=== PATIENT | female | born 1950 | race Caucasian/White ===

== ENCOUNTER 2018-02-02 14:23 | Outpatient (CLI) | payer MEDICARE ==
--- NOTE | 2018-02-02 15:33 | RAD ---
CHEST TWO VIEWS: History: Cough. Comparison: None. FINDINGS: There are sternotomy wires. Heart is enlarged. There is atherosclerosis of the aorta. Coronary artery stent is noted. Pulmonary vessels and hilum are normal. There are reticular nodular opacities. Lungs are hyperinflated. No pneumothorax. IMPRESSION: 1. Nonspecific reticular nodular opacities. 2. Cardiomegaly. 3. Atherosclerosis. POS: [facility]
== END 2018-02-02 14:24 | disposition home or self-care (01) ==
LOC: RAD-FRANK 14:23
PROVIDERS: ATTEND Nurse Practitioner Family
DX: J40 Bronchitis, not specified as acute or chronic (principal); I51.7 Cardiomegaly; R91.8 Other nonspecific abnormal finding of lung field; I70.0 Atherosclerosis of aorta
CPT/HCPCS: 71046

== ENCOUNTER 2018-09-24 20:53 | Emergency (ER) | payer MEDICARE, MEDICAID ==
--- NOTE | 2018-09-24 21:51 | RAD ---
CHEST TWO VIEWS: 09/24/18 HISTORY: Cough. COMPARISON: 02/02/18. FINDINGS: The cardiac silhouette and upper limits of normal in size. Pulmonary vasculature is unremarkable. Med iastinum is midline with aortic calcification, coronary artery stent, and postoperative changes. Lung s are slightly hyperinflated. There is no lobar consolidation, pneumothorax, or pleural fluid. IMPRESSION: Atherosclerosis. Chronic type findings are stable. POS: [facility]
--- NOTE | 2018-09-24 21:53 | RAD ---
LUMBAR SPINE THREE VIEWS: 09/24/18 HISTORY: Low back pain. FINDINGS: There are five lumbar type vertebrae. Bilateral pedicle screws and vertical rods of the lumbosacral j unction. Other pedicles are intact. Vertebral body heights and alignment are maintained. Moderate ost eophytosis. Calcification within the arterial structures. IMPRESSION: Postoperative changes and mild degenerative changes of the lumbar spine. No acute osseous abnormaliti es are demonstrated. Atherosclerosis. POS: [facility]
[2018-09-24] MEDS ORDERED: HYDROcodone/Acetaminophen 10/325 mg Tablet ONE (21:58)
== END 2018-09-24 23:00 | disposition home or self-care (01) ==
LOC: ERS 20:53
DX: M54.5 Low back pain (principal); J20.9 Acute bronchitis, unspecified; I25.10 Atherosclerotic heart disease of native coronary artery without angina pectoris; F41.9 Anxiety disorder, unspecified; F32.9 Major depressive disorder, single episode, unspecified; F17.210 Nicotine dependence, cigarettes, uncomplicated; I25.2 Old myocardial infarction; Z79.82 Long term (current) use of aspirin; Z79.899 Other long term (current) drug therapy
CPT/HCPCS: 71046; 72100

== ENCOUNTER 2018-10-27 21:15 | Emergency (ER) | payer MEDICARE, MEDICAID ==
[~2018-10-27 21:15] MED LIST: ISOVUE-370 76%-LOCM 1 ML ONE
[2018-10-27 22:12] LABS: #Basophils 0.1 thou/uL (0.0-0.2); #Eosinphils 0.2 thou/uL (0.0-0.7); #Lymphocytes 1.7 thou/uL (1.20-3.40); #Monocytes 0.8 thou/uL (0.11-0.59); #Neutrophils 8.2 thou/uL (1.40-6.50); %Basophils 0.5 % (0.0-1.0); %Eosinophils 1.7 % (0.0-10.0); %Lymphocytes 15.6 % (21.0-51.0); %Monocytes 7.2 % (0.0-10.0); %Neutrophils 75.1 % (42.0-75.0); Hemoglobin 14.3 g/dL (12.0-16.0); Mean Corpuscular HGB CONC 33.8 g/dL (32.0-36.0); Mean Corpuscular Hemoglobin 30.2 pg (27.0-31.0); Mean Corpuscular Volume 89.5 fL (78.0-98.0); Mean Platelet Volume 8.9 fL (7.4-10.4); Platelet Count 199 thou/uL (130-400); RBC Distribution Width 13.7 % (11.5-14.5); Red Blood Cell (RBC) Count 4.74 mill/uL (4.20-5.40); White Blood Cell (WBC) Count 10.9 thou/uL (4.8-10.8)
[2018-10-27 22:15] LABS: Bilirubin Negative (Negative); Blood, Urine Negative (Negative); Clarity CLEAR (Clear); Glucose, Urine (Dipstick) Negative (Negative); Leukocyte Negative (Negative); Nitrite Negative (Negative); Protein, Urine (Dipstick) Negative (Neg-Trace); Specific Gravity, Urine 1.007 (1.002-1.036); Urobilinogen 0.2 mg/dL (0.2-1.0)
--- NOTE | 2018-10-27 22:16 | RAD ---
PORTABLE UPRIGHT FRONTAL CHEST RADIOGRAPH 10/27/18 COMPARISON: 02/29/16. HISTORY: Abdominal pain with shortness of breath. FINDINGS: Midline sternotomy wires and mediastinal clips are noted, stable. No pneumothorax or pleural fluid. N o focal consolidation or alveolar edema. Mild increased linear interstitial density with pulmonary hy perinflation noted, stable. IMPRESSION: Stable appearance of the chest - no acute findings. POS: [facility]
[2018-10-27 22:37] LABS: ALT (SGPT) 9 U/L (8-55); AST (SGOT) 13 U/L (5-34); Albumin 3.9 g/dL (3.4-4.8); Alkaline Phosphatase 100 U/L (40-150); Anion Gap 11 mmol/L (10-20); BUN (Urea Nitrogen) 6 mg/dL (9.8-20.1); Bilirubin, Total 0.6 mg/dL (0.2-1.2); Calc. Creatinine Clearance 0 mL/min (70-130); Calcium 9.9 mg/dL (7.8-10.44); Carbon Dioxide 29 mmol/L (23-31); Chloride 102 mmol/L (98-107); Estimated GFR-MDRD 69; Globulin 3.2 g/dL (2.4-3.5); Glucose 107 mg/dL (80-115); Lipase 53 U/L (8-78); Potassium 3.6 mmol/L (3.5-5.1); Protein, Total 7.1 g/dL (6.0-8.3); Sodium 138 mmol/L (136-145)
[2018-10-27] MEDS ORDERED: Dicyclomine 20 MG TAB ONE (22:38)
[2018-10-27] MEDS ORDERED: hydrALAZINE 20 MG/ML VIAL ONE (22:38)
[2018-10-27 22:41] LABS: CKMB 0.8 ng/mL (0-6.6); Troponin I Less than 0.010 ng/mL (< 0.028)
--- NOTE | 2018-10-27 23:16 | CT ---
CT OF ABDOMEN AND PELVIS: 10/27/18 COMPARISON: None. HISTORY: Right lower quadrant pain. TECHNIQUE: Axial CT imaging at 5 mm intervals from lung bases through pubic symphysis with IV contrast. Coronal reformatted imaging obtained. FINDINGS: The imaged lung bases are unremarkable. Incompletely imaged midline sternotomy wires are present. The cardiac silhouette appears enlarged. No free intraperitoneal air. Cholelithiasis noted. The liver, spleen, pancreas, adrenal glands, and kidneys appear unremarkable. The lack of oral contrast limits assessment of the bowel. The colon is decompressed and thus not well assessed. The appendix is not visualized. There is a line ar focus of hyperdensity at the cecal apex which may be on the basis of prior appendectomy. There is multifocal atherosclerotic calcification of the abdominal aorta and its branches. No lymphadenopathy is seen within the abdomen or the pelvis. The osseous structures demonstrate lower lumbar spine posterior fusion hardware at the lumbosacral junction. No worrisome lytic or blastic pham ne lesions seen. IMPRESSION: Chronic findings as described above. No evidence for free intraperitoneal air or bowel obstruction/pham wel inflammatory change. POS: [facility]
[2018-10-28] MEDS ORDERED: Ketorolac Tromethamine 30 MG/ML VIAL ONE (00:07)
== END 2018-10-28 00:50 | disposition home or self-care (01) ==
LOC: ERS 21:15
DX: G89.18 Other acute postprocedural pain (principal); R10.31 Right lower quadrant pain; I25.10 Atherosclerotic heart disease of native coronary artery without angina pectoris; I25.2 Old myocardial infarction; I10 Essential (primary) hypertension; J44.9 Chronic obstructive pulmonary disease, unspecified; F41.9 Anxiety disorder, unspecified; F32.9 Major depressive disorder, single episode, unspecified; F17.210 Nicotine dependence, cigarettes, uncomplicated; Z79.899 Other long term (current) drug therapy; Z79.82 Long term (current) use of aspirin; Z98.890 Other specified postprocedural states
CPT/HCPCS: 71045; 74177; 80053; 81003; 82553; 83690; 84484; 85025; 87086; 93005; 96374; 96375; J0360; J1885

== ENCOUNTER 2019-05-16 12:21 | Observation (INO) | payer MEDICARE, MEDICAID ==
[2019-05-16 12:41] LABS: #Basophils 0.1 thou/uL (0.0-0.2); #Eosinphils 0.1 thou/uL (0.0-0.7); #Monocytes 0.9 thou/uL (0.11-0.59); #Neutrophils 12.4 thou/uL (1.40-6.50); %Basophils 0.5 % (0.0-1.0); %Eosinophils 0.9 % (0.0-10.0); %Lymphocytes 12.8 % (21.0-51.0); %Monocytes 5.6 % (0.0-10.0); %Neutrophils 80.3 % (42.0-75.0); Mean Corpuscular HGB CONC 32.4 g/dL (32.0-36.0); Mean Corpuscular Hemoglobin 28.6 pg (27.0-31.0); Mean Corpuscular Volume 88.2 fL (78.0-98.0); Mean Platelet Volume 9.1 fL (7.4-10.4); Platelet Count 196 thou/uL (130-400); RBC Distribution Width 14.2 % (11.5-14.5); Red Blood Cell (RBC) Count 4.89 mill/uL (4.20-5.40); White Blood Cell (WBC) Count 15.5 thou/uL (4.8-10.8)
[2019-05-16] MEDS ORDERED: Aspirin 325 MG TAB ONE (12:50)
[2019-05-16] MEDS ORDERED: Nitroglycerin 0.4 MG TAB 1 EACH ONE (12:50)
[2019-05-16 13:05] LABS: ALT (SGPT) 11 U/L (8-55); AST (SGOT) 13 U/L (5-34); Albumin 4.1 g/dL (3.4-4.8); Alkaline Phosphatase 107 U/L (40-150); Anion Gap 15 mmol/L (10-20); BUN (Urea Nitrogen) 4 mg/dL (9.8-20.1); Bilirubin, Total 1.3 mg/dL (0.2-1.2); Calc. Creatinine Clearance 0 mL/min (70-130); Calcium 9.5 mg/dL (7.8-10.44); Carbon Dioxide 26 mmol/L (23-31); Chloride 101 mmol/L (98-107); Estimated GFR-MDRD 68; Globulin 3.1 g/dL (2.4-3.5); Glucose 106 mg/dL (80-115); Protein, Total 7.2 g/dL (6.0-8.3); Sodium 139 mmol/L (136-145)
[2019-05-16] MEDS ORDERED: Acetaminophen 500 MG TAB ONE (13:23)
[2019-05-16] MEDS ORDERED: Nitroglycerin 2% Ointment 1 INCH/1 GM Packet ONE (13:23)
--- NOTE | 2019-05-16 14:07 | RAD ---
CHEST ONE VIEW: 05/16/19 at 12:50 p.m. HISTORY: Chest pain. FINDINGS: Comparison made with exam of 10/27/18. Changes of median sternotomy again seen. The heart is enlarged. The aorta is tortuous. The lungs are expanded without focal areas of consolidation, pneumothoraces, fahad pulmonary edema or pleural effus ions. IMPRESSION: No acute process. POS: [facility]
[2019-05-16 15:20] VITALS: BMI 24.1
[2019-05-16 16:18] LABS: Troponin I Less than 0.010 ng/mL (< 0.028)
[2019-05-16] MEDS ORDERED: Nitroglycerin 0.4 MG TAB (25 Tab Bottle) PO PRN (18:03)
[2019-05-16] MEDS ORDERED: Temazepam 15 MG CAP PO PRN (18:03)
[2019-05-16] MEDS ORDERED: Acetaminophen 325 MG TAB PO PRN (18:03)
[2019-05-16] MEDS: Mometasone/Formoterol 120 PUFF INHALER INH SCH (18:47)
[2019-05-16 19:08] LABS: Troponin I Less than 0.010 ng/mL (< 0.028)
[2019-05-16] MEDS ORDERED: ETODOLAC 300 MG PO SCH (21:00)
[2019-05-16] MEDS ORDERED: Atorvastatin Calcium 20 MG TAB PO SCH (21:00)
[2019-05-16] MEDS ORDERED: Non-Formulary Item 1 EACH (Budesonide-Formoterol [Symbicort 160-4.5] 2 PUFF) INH SCH (21:00)
[2019-05-16] MEDS ORDERED: traZODone HCl 50 MG TAB PO SCH (21:00)
[2019-05-16] MEDS: Nitroglycerin 2% Ointment 1 INCH/1 GM Packet TOP SCH (21:20)
[2019-05-16] MEDS: Oxybutynin 5 MG TAB PO SCH (21:20)
--- NOTE | 2019-05-16 22:50 | HP ---
PRIMARY CARE PHYSICIAN: JADE Newell COUNTER MAKER: Juan Stockton MD CHIEF COMPLAINT: Left arm pain and numbness. HISTORY OF PRESENT ILLNESS: Ms. Patel is a very pleasant 69-year-old female, who has a history of coronary artery disease. She has had a previous WI back in 2016 and has had bypass surgery x2. She says that she was doing fine since 2016 when she had a stent placed to the right coronary artery when she started having pain in her left arm. She says that it happened shortly after she woke up. She says that she was not doing anything in particular with regard to anything strenuous. She says that the pain then lasted only about 5 or 10 minutes and then went away and then would come back in "different locations" such as in her back and as well as in her chest. She says that the pain was not that severe. It was more or less a 2/10, but it was associated with nausea and dry heaving and she felt hot and cold all over. She says it was very similar in characteristics when she had a previous WI and for this reason, she came to the emergency room for evaluation. She denies having any PND or orthopnea. When asked if she was short of breath, she says she is "always short of breath" because she is on the verge of "COPD." She does admit to having some leg swelling, but denies any palpitations. REVIEW OF SYSTEMS: CONSTITUTIONAL: There has been no fevers, chills. No night sweats. No weight loss. HEENT: She denies any headache. No dizziness. No visual changes. No sore throat, rhinorrhea, neck pain. No adenopathy. PULMONARY: No hemoptysis. No cough. No wheezing. CARDIOVASCULAR: As in history of present illness. GASTROINTESTINAL: No abdominal pain. No nausea, no vomiting. No change in bowels. GENITOURINARY: No urinary frequency, hematuria. No hesitancy. NEUROLOGIC: No focal weakness, numbness. No seizures. PSYCHIATRIC: She has had some stress lately. She says her daughter was recently admitted to the hospital for a suicide attempt and taking an overdose and this has been stressing her out lately. SKIN AND INTEGUMENT: No skin changes other than she says that she bruises easily and she attributes that to the "blood thinners." PAST MEDICAL HISTORY: Significant for coronary artery disease, as well as elevated cholesterol, COPD, and hypertension. PAST SURGICAL HISTORY: She has had a two-vessel bypass followed by a four-vessel bypass and then a stent placement in 2016. She has had eye surgery and appendectomy, back surgery and bilateral tubal ligation. ALLERGIES: SHE SAYS ARE TO STADOL, CHLORPHENIRAMINE, AND PHENYLEPHRINE. SOCIAL HISTORY: She smokes about a half a pack of cigarettes daily at least for 50 years. She says she is cutting back. She denies any alcohol use. She is and would like to be a full code. She has 2 children. FAMILY HISTORY: Significant for a maternal aunt who had cancer. CURRENT MEDICATIONS: Include; 1. Symbicort 160/4.5 two puffs twice a day. 2. Lipitor 80 mg at bedtime. 3. Fluoxetine 40 mg daily. 4. Oxybutynin 5 mg twice daily. 5. Aspirin 81 mg daily. 6. Trazodone 50 mg at bedtime. 7. Metoprolol succinate 25 mg daily. 8. Isosorbide mononitrate 30 mg extended release daily. 9. Nitrostat 0.4 mg sublingual daily. 10. Etodolac 300 mg daily. 11. Clopidogrel 75 mg daily. 12. Lisinopril 5 mg daily. 13. Pantoprazole 40 mg at bedtime. PHYSICAL EXAMINATION: GENERAL: She is alert and oriented. She appears to be in no acute distress. She is well developed and well nourished. VITAL SIGNS: Blood pressure is 188/87, heart rate 70, respiratory rate of 20, and temperature is 97.8. HEENT: Her pupils are equal, round, and reactive to light and accommodation. Extraocular muscles are intact. Sclerae are anicteric. Throat, there is no erythema, no exudates. NECK: There are no bruits. She did have maybe a slight increase in jugular venous distention. No adenopathy. LUNGS: Clear to auscultation. There is no wheezing, no rales, no rhonchi. CARDIOVASCULAR: She has a normal S1, S2. I did not appreciate an S3 or S4. No murmurs, clicks or rubs. ABDOMEN: Soft. It is nontender and nondistended. Positive for bowel sounds. There is no rebound, no guarding, no organomegaly. EXTREMITIES: There is no edema. There is no calf tenderness, no joint effusions. NEUROLOGIC: Cranial nerves 2 through 12 are intact. Her muscle strength is 5/5, upper and lower extremities. SKIN AND INTEGUMENT: There is some bruising on the left upper extremity, but no rashes. LAB RESULTS: White blood cell count is 15.5, hemoglobin 14, hematocrit is 43.1, and platelet count is 196. Sodium 139, potassium 3.0, chloride is 101, CO2 is 26, BUN of 4, creatinine 0.84, glucose is 106, bilirubin is 1.3. Troponin is less than 0.010. On her EKG, it is sinus rhythm, the rate is 86. She had some voltage criteria for LVH. There is a Q-wave in III and some nonspecific ST wave changes. On her chest x-ray, there is evidence for cardiomegaly, but no increased pulmonary vascular markings. ASSESSMENT: 1. This is a pleasant 69-year-old female, who presents to the emergency room with complaints of arm and chest pain which is reminiscent of the pain that she had when she had her ischemic heart disease and it is likely her anginal equivalent. She will be placed in observation. We will continue to trend her cardiac enzymes, place her on aspirin and nitroglycerin paste. Continue her usual home medications. Given that she has a reported recent cardiac evaluation in lieu of ordering a stress test, we will consult her automotive service technician, Dr. Stockton for further recommendations. 2. Dyslipidemia. We will continue atorvastatin. 3. Chronic obstructive pulmonary disease. We will continue Symbicort as well as eric Winston. Job ID: [id number]
[2019-05-17] MEDS: Nitroglycerin 2% Ointment 1 INCH/1 GM Packet TOP SCH ×2 (03:53→05:05)
[2019-05-17 05:49] LABS: #Basophils 0.1 thou/uL (0.0-0.2); #Eosinphils 0.2 thou/uL (0.0-0.7); #Lymphocytes 2.2 thou/uL (1.20-3.40); #Monocytes 0.7 thou/uL (0.11-0.59); #Neutrophils 4.4 thou/uL (1.40-6.50); %Eosinophils 3.1 % (0.0-10.0); %Lymphocytes 29.1 % (21.0-51.0); %Monocytes 8.6 % (0.0-10.0); %Neutrophils 58.1 % (42.0-75.0); Hemoglobin 12.2 g/dL (12.0-16.0); Mean Corpuscular HGB CONC 32.7 g/dL (32.0-36.0); Mean Corpuscular Volume 88.6 fL (78.0-98.0); Mean Platelet Volume 9.4 fL (7.4-10.4); Platelet Count 147 thou/uL (130-400); Red Blood Cell (RBC) Count 4.22 mill/uL (4.20-5.40); White Blood Cell (WBC) Count 7.7 thou/uL (4.8-10.8)
[2019-05-17 06:17] LABS: Anion Gap 10 mmol/L (10-20); BUN (Urea Nitrogen) 6 mg/dL (9.8-20.1); Calc. Creatinine Clearance 60 mL/min (70-130); Carbon Dioxide 29 mmol/L (23-31); Cardiac Risk 2.6 (Less than 4.5); Chloride 105 mmol/L (98-107); Cholesterol 85 mg/dl (< 200 Desired); Estimated GFR-MDRD 59; Glucose 82 mg/dL (80-115); HDL Cholesterol 33 mg/dL (>60 Neg Risk); LDL Cholesterol, Calculated 41 mg/dL; Potassium 3.1 mmol/L (3.5-5.1); Sodium 141 mmol/L (136-145); Triglycerides 56 mg/dL (Less than 150)
[2019-05-17] MEDS: Mometasone/Formoterol 120 PUFF INHALER INH SCH ×2 (08:03→18:47)
[2019-05-17] MEDS: Enoxaparin Sodium 30 MG/0.3 ML SYRINGE SC SCH ×2 (08:11→10:29)
[2019-05-17] MEDS: Oxybutynin 5 MG TAB PO SCH (08:25)
[2019-05-17] MEDS ORDERED: Clopidogrel Bisulfate 75 MG TAB PO SCH (09:00)
[2019-05-17] MEDS ORDERED: FLUoxetine HCl 20 MG CAP PO SCH (09:00)
[2019-05-17] MEDS ORDERED: Aspirin 81 mg Enteric Coated Tablet PO SCH (09:00)
[2019-05-17] MEDS ORDERED: Lisinopril 5 MG TAB PO SCH ×2 (09:00→13:30)
[2019-05-17] MEDS ORDERED: cloNIDine 0.1 MG TAB PO PRN (13:16)
[2019-05-17 16:33] VITALS: BP 155/71; TEMP 98.8
--- NOTE | 2019-05-17 18:13 | CON ---
DATE OF CONSULTATION: REASON FOR CONSULTATION: Chest pain. HISTORY OF PRESENT ILLNESS: Ms. Patel is a 69-year-old woman, who was seen and evaluated in the past. She has a previous history of acute myocardial infarction in addition to CAD status post bypass surgery. She recently states she had a stressful situation with her daughter. Her blood pressure increased. She had substernal chest pain. She was subsequently admitted. Her CKs and troponins have been negative. The patient did undergo successful stent placement to the saphenous vein graft to the right coronary artery, but there was significant thrombus present. She did have a recent stress study performed in August of 2018 that showed a normal LVEF with a scar to the inferior wall. PAST MEDICAL HISTORY: Reviewed and is as above. PHYSICAL EXAMINATION: GENERAL: Patient is a pleasant female, who is in no acute distress. The patient appears their stated age. VITAL SIGNS: Blood pressure 155/71, pulse 52, temperature 98.8. NEUROLOGIC: The patient is alert and oriented x3 with no focal neurologic deficits. HEENT: Sclerae without icterus. Mouth has moist mucous membranes with normal pallor. NECK: No JVD. Carotid upstroke brisk. No bruits bilaterally. LUNGS: Clear to auscultation with unlabored respirations. BACK: No scoliosis or kyphosis. CARDIAC: Regular rate and rhythm with normal S1 and S2. No S3 or S4 noted. No significant rubs, murmurs, thrills, or gallops noted throughout the precordium. PMI is not displaced. There is no parasternal heave. ABDOMEN: Soft, nontender, nondistended. No peritoneal signs present. No hepatosplenomegaly. No abnormal striae. EXTREMITIES: 2+ femoral and 2+ dorsalis pedis pulses. No cyanosis, clubbing, or edema. SKIN: No gross abnormalities. PERTINENT LABORATORY DATA: CK and troponin, negative. IMPRESSION: 1. Chest pressure. 2. Coronary artery disease. 3. Status post bypass surgery. RECOMMENDATIONS: Ms. Patel's symptoms are likely secondary to increased blood pressure. Blood pressure was in the 180s over 100s. It is now improved. She states she also feels this was precipitated by recent stressful situation. At this point, recommend aggressive blood pressure management. We would not proceed with coronary angiography given a recent stress study showing predominant scar to the inferior wall. Plan is to follow Ms. Patel in 1 to 2 weeks. Job ID: [id number]
--- NOTE | 2019-05-18 14:06 | DIS ---
DATE OF ADMISSION: 05/16/2019 DATE OF DISCHARGE: 05/17/2019 PRIMARY CARE PHYSICIAN: [facility] [place]. CONSULTANTS: Juan Stockton MD PROCEDURES: The patient had a chest x-ray, which showed no acute process. HOSPITAL COURSE: Ms. Patel is a 69-year-old female, who has a history of coronary artery disease with a previous AL back in 2016 and bypass surgery x2. She also has a stent placed in the right coronary artery. The patient reports that she is having some chest pain and arm pain, reminiscent of the pain that she had when she had her ischemic heart disease and thought likely to be anginal equivalent. She was placed on the observation unit. Troponins were trended. She was given aspirin and was given some nitroglycerin paste. We asked Dr. Stockton to consult. The patient reports that she has had a recent cardiac evaluation. Dr. Stockton thought that her symptoms were likely secondary to increased blood pressure. Initially, it was systolic 180s over 100s. She has since improved while in the hospital. He recommended blood pressure management, did not want to proceed with the cardiac cath due to her recent stress test, which showed predominant scar to the inferior wall and he went on to see her in the office in 1 to 2 weeks. Troponins x3 were undetectable. BNP was 401.8. The patient was feeling better. Vital signs improved and she was sent home. ALLERGIES: STADOL, NOVALISONISTINE. HOME MEDICATIONS: We continued: 1. ProAir inhaler 2 puffs as needed q.4. 2. Lipitor 80 mg p.o. at bedtime. 3. Symbicort 160/4.5 two puffs b.i.d. 4. Plavix 75 mg p.o. daily. 5. Etodolac 300 mg cap p.o. at bedtime. 6. Fluoxetine 40 mg p.o. daily. 7. Metoprolol 25 mg p.o. daily. 8. Ditropan 5 mg p.o. b.i.d. 9. Protonix 40 mg p.o. daily. 10. Trazodone 50 mg p.o. at bedtime. 11. Aspirin 81 mg p.o. daily. 12. Isosorbide 30 mg p.o. daily was added. 13. We also added lisinopril 10 mg p.o. daily and also some nitroglycerin 0.4 mg sublingual q.5 minutes as needed. DISPOSITION: Home. DISCHARGE CONDITION: Stable. FOLLOWUP INSTRUCTIONS: The patient should follow up with [facility] within the next week and should follow up with Dr. Stockton in the next 1 to 2 weeks. She should call and make appointments for both. Medications have been added to her regimen and instructed to take as prescribed. Job ID: [id number]
--- NOTE | 2019-05-20 11:05 | EKG ---
Test Reason : CP Blood Pressure : / mmHG Vent. Rate : 086 BPM Atrial Rate : 086 BPM P-R Int : 136 ms QRS Dur : 096 ms QT Int : 386 ms P-R-T Axes : 053 034 143 degrees QTc Int : 461 ms Sinus rhythm with Premature supraventricular complexes with occasional Premature ventricular complexe s Possible Left atrial enlargement Left ventricular hypertrophy Abnormal ECG No change from 10/27/2018 Confirmed by TRIXIE HOLLINS ([id number]), content editor RICKY TRIMBLE ([id number]) on 05/20/2019 11:04:41 AM Referred By: Confirmed By:TRIXIE HOLLINS
== END 2019-05-17 19:50 | disposition home or self-care (01) ==
LOC: ERS 12:21 → 2SW 13:54
PROVIDERS: ADMIT Internal Medicine; ATTEND Internal Medicine
DX: R07.9 Chest pain, unspecified (principal); R20.0 Anesthesia of skin; I25.2 Old myocardial infarction; Z79.899 Other long term (current) drug therapy; Z79.82 Long term (current) use of aspirin; Z95.2 Presence of prosthetic heart valve; Z95.5 Presence of coronary angioplasty implant and graft
CPT/HCPCS: 36415; 71045; 80048; 80053; 80061; 83880; 84484; 85025; 93005; 94760; J1650

== ENCOUNTER 2019-05-19 14:10 | Outpatient (CLI) | payer MEDICARE, MEDICAID ==
--- NOTE | 2019-05-19 14:42 | MMO ---
Bilateral MAMMO Bilat Screen [facility]. CLINICAL HISTORY: Patient is 69 years old and is seen for screening. The patient has no family history of breast cancer. The patient has no personal history of cancer. The patient has a history of left Cyst Aspiration more than 10 years ago - benign. VIEWS: The views performed were: bilateral craniocaudal with tomosynthesis; bilateral mediolateral oblique with tomosynthesis; and bilateral exaggerated craniocaudal. MAMMOGRAM FINDINGS: The breasts are heterogeneously dense, which could obscure a lesion on mammography. There are no suspicious masses, suspicious calcifications, or new areas of architectural distortion. IMPRESSION: THERE IS NO MAMMOGRAPHIC EVIDENCE OF MALIGNANCY. A ROUTINE FOLLOW-UP MAMMOGRAM IN 1 YEAR IS RECOMMENDED. THE RESULTS OF THIS EXAM WERE SENT TO THE PATIENT. ACR BI-RADS Category 1 - Negative MAMMOGRAPHY NOTE: 1. A negative mammogram report should not delay a biopsy if a dominant of clinically suspicious mass is present. 2. Approximately 10% to 15% of breast cancers are not detected by mammography. 3. Adenosis and dense breasts may obscure an underlying neoplasm.
== END 2019-05-19 14:11 | disposition home or self-care (01) ==
LOC: BICMAMMO 14:10
PROVIDERS: ATTEND Nurse Practitioner Family
DX: Z12.31 Encounter for screening mammogram for malignant neoplasm of breast (principal)
CPT/HCPCS: 77063; 77067

== ENCOUNTER 2019-06-19 14:06 | Outpatient (CLI) | payer MEDICARE, MEDICAID ==
--- NOTE | 2019-06-19 16:08 | BD ---
DEXA BONE MINERAL DENSITY STUDY: HISTORY: Osteoporosis screening. COMPARISON: None. FINDINGS: BMD (g/cm2) T-SCORE Z-SCORE RIGHT FEMORAL NECK 0.672 -1.6 0.0 TOTAL RIGHT HIP 0.841 -0.8 0.5 L1 0.815 -1.6 0.1 L2 0.925 -0.9 1.0 L3 1.100 0.1 2.1 L4 1.099 0.3 2.4 TOTAL 0.991 -0.5 1.4 WHO CLASSIFICATION: Osteopenia. TEN YEAR FRACTURE RISK: Major osteoporotic fracture 13% and hip fracture 3.1%. IMPRESSION: Osteopenia with elevated fracture risk. POS: [facility]
== END 2019-06-19 14:07 | disposition home or self-care (01) ==
LOC: BICMAMMO 14:06
PROVIDERS: ATTEND Nurse Practitioner Family
DX: Z13.820 Encounter for screening for osteoporosis (principal); M85.89 Other specified disorders of bone density and structure, multiple sites
CPT/HCPCS: 77080

== ENCOUNTER 2019-09-18 12:16 | Outpatient (CLI) | payer MEDICAID, MEDICARE ==
--- NOTE | 2019-09-18 12:59 | ULT ---
EXAM: Carotid ultrasound HISTORY: Stroke/TIA COMPARISON: None TECHNIQUE: Multiplanar grayscale and color Doppler images were obtained in a carotid ultrasound. Spec tral analysis of the Doppler waveforms were performed. FINDINGS: No small amount of plaque is visualized in both internal carotid arteries. No significant plaque is s een in either common carotid artery. The Doppler waveforms are normal in the visualized vessels. Peak systolic velocity in the right internal carotid artery 57 cm/s. Peak systolic velocity in the right common carotid artery 62 cm/s. The right ICA/CCA ratio is 0.9. Peak systolic velocity in the left internal carotid artery 83 cm/s. Peak systolic velocity in the left common carotid artery 75 cm/s. The left ICA/CCA ratio is 1.1. Both vertebral arteries demonstrate antegrade flow without focal stenosis IMPRESSION: No evidence of hemodynamically significant stenosis.
--- NOTE | 2019-09-18 13:10 | CT ---
CT head without contrast: Multiple axial tomograms obtained through the head without IV enhancement. INDICATIONS: Aphasia. Memory loss. COMPARISON: None FINDINGS: Ventricles have normal size and position. Moderate to severe chronic ischemic white matter change. No evidence of intracranial mass, hemorrhage, edema, or infarct. Visualized sinuses and mastoids appear clear. Bony calvarium appears unremarkable. IMPRESSION: Moderately severe chronic ischemic white matter change. No acute process.
== END 2019-09-18 12:17 | disposition home or self-care (01) ==
LOC: BICULT 12:16
DX: R47.01 Aphasia (principal); I67.82 Cerebral ischemia
CPT/HCPCS: 70450; 93880

== ENCOUNTER 2020-06-25 20:55 | Emergency (ER) | payer MEDICARE, OTHER ==
--- NOTE | 2020-06-25 22:12 | CT ---
Exam: Head CT without contrast HISTORY: Trauma. Patient fell last week. COMPARISON: none FINDINGS: Hemorrhage: No intraparenchymal hemorrhage or extra-axial hematoma. Brain parenchyma: Cortical abdul-white matter differentiation is preserved. No mass effect or midline shift. Basilar cisterns are patent.Stable confluent white matter hypodensities due to chronic small vessel change. Ventricular system: Ventricles and sulci are patent and symmetric. Calvarium: Intact. Sinuses and mastoid air cells: Adequate aeration. IMPRESSION: No acute intracranial process or intracranial post traumatic sequelae.
--- NOTE | 2020-06-25 22:16 | CT ---
Exam: CT cervical spine without contrast HISTORY: Trauma. Pain. COMPARISON: None FINDINGS: No craniocervical dissociation. Appropriate alignment of the lateral masses of C1 and C2. Intact odon toid process Appropriate alignment of the facets. Soft tissue neck structures: No mass, lymphadenopathy or hematoma. No prevertebral soft tissue swelli ng. Heterogeneous thyroid gland. Nonemergent thyroid ultrasound Upper mediastinum and lung apices: Questionable subtle groundglass nodule in the left upper lobe kvng uring 0.6 cm Central spinal canal: Varying degrees of central canal stenosis and neural foraminal narrowing on the basis of degenerative change. Prominent left paracentral discussed by complex at C5-C6. Vertebral bodies: Cervical spine vertebral body height is maintained. No fracture. IMPRESSION: 1. No fracture 2. Multilevel degenerative changes of the cervical spine as described above 3. Heterogeneous thyroid gland. Nonemergent thyroid ultrasound 4. Questionable groundglass nodule in the left upper lobe. Nonemergent chest CT Code lung nodule
[2020-06-25 22:47] LABS: #Basophils 0.1 thou/uL (0.0-0.2); #Eosinphils 0.1 thou/uL (0.0-0.7); #Lymphocytes 2.4 thou/uL (1.20-3.40); #Monocytes 0.9 thou/uL (0.11-0.59); #Neutrophils 5.5 thou/uL (1.40-6.50); %Basophils 0.6 % (0.0-1.0); %Eosinophils 1.5 % (0.0-10.0); %Lymphocytes 27.1 % (21.0-51.0); %Monocytes 9.6 % (0.0-10.0); %Neutrophils 61.3 % (42.0-75.0); Hemoglobin 13.2 g/dL (12.0-16.0); Mean Corpuscular HGB CONC 33.6 g/dL (32.0-36.0); Mean Corpuscular Hemoglobin 30.5 pg (27.0-31.0); Mean Corpuscular Volume 90.7 fL (78.0-98.0); Mean Platelet Volume 9.7 fL (7.4-10.4); Platelet Count 138 thou/uL (130-400); RBC Distribution Width 13.8 % (11.5-14.5); Red Blood Cell (RBC) Count 4.33 mill/uL (4.20-5.40)
[2020-06-25 23:09] LABS: ALT (SGPT) Less than 7 U/L (8-55); AST (SGOT) 10 U/L (5-34); Albumin 3.4 g/dL (3.4-4.8); Alkaline Phosphatase 79 U/L (40-110); Anion Gap 9 mmol/L (10-20); BUN (Urea Nitrogen) 8 mg/dL (9.8-20.1); Bilirubin, Total 0.5 mg/dL (0.2-1.2); Calc. Creatinine Clearance 0 mL/min (70-130); Calcium 8.8 mg/dL (7.8-10.44); Carbon Dioxide 33 mmol/L (23-31); Chloride 103 mmol/L (98-107); Estimated GFR-MDRD 51; Globulin 2.4 g/dL (2.4-3.5); Glucose 83 mg/dL (80-115); Potassium 3.2 mmol/L (3.5-5.1); Protein, Total 5.8 g/dL (6.0-8.3); Sodium 142 mmol/L (136-145)
== END 2020-06-25 23:23 | disposition home or self-care (01) ==
LOC: ERS 20:55
DX: R51 Headache (principal); M54.2 Cervicalgia; I25.10 Atherosclerotic heart disease of native coronary artery without angina pectoris; I25.2 Old myocardial infarction; I10 Essential (primary) hypertension; J44.9 Chronic obstructive pulmonary disease, unspecified; F41.9 Anxiety disorder, unspecified; F32.9 Major depressive disorder, single episode, unspecified; F17.210 Nicotine dependence, cigarettes, uncomplicated; Z79.899 Other long term (current) drug therapy; Z79.82 Long term (current) use of aspirin; W18.00XA Striking against unspecified object with subsequent fall, initial encounter
CPT/HCPCS: 36415; 70450; 72125; 80053; 85025; 85652; 86140

== ENCOUNTER 2020-09-19 18:12 | Inpatient (IN) | payer MEDICARE, OTHER ==
[2020-09-19 18:49] LABS: Bilirubin Negative (Negative); Blood, Urine Negative (Negative); Clarity Clear (Clear); Glucose, Urine (Dipstick) Normal (Negative); Ketone, Urine Negative (Negative); Leukocyte Negative Leu/uL (Negative); Nitrite Negative (Negative); Protein, Urine (Dipstick) Negative (Neg-Trace); Specific Gravity, Urine 1.004 (1.002-1.036); Urobilinogen Normal mg/dL (Less than 2)
[2020-09-19 18:54] LABS: #Basophils 0.1 thou/uL (0.0-0.2); #Eosinphils 0.1 thou/uL (0.0-0.7); #Lymphocytes 2.3 thou/uL (1.20-3.40); #Monocytes 0.7 thou/uL (0.11-0.59); #Neutrophils 5.8 thou/uL (1.40-6.50); %Basophils 0.7 % (0.0-1.0); %Lymphocytes 25.4 % (21.0-51.0); %Monocytes 8.3 % (0.0-10.0); %Neutrophils 64.7 % (42.0-75.0); Hemoglobin 13.9 g/dL (12.0-16.0); Mean Corpuscular Hemoglobin 30.7 pg (27.0-31.0); Mean Corpuscular Volume 92.9 fL (78.0-98.0); Mean Platelet Volume 9.3 fL (7.4-10.4); Platelet Count 163 thou/uL (130-400); RBC Distribution Width 13.9 % (11.5-14.5); Red Blood Cell (RBC) Count 4.54 mill/uL (4.20-5.40); White Blood Cell (WBC) Count 8.9 thou/uL (4.8-10.8)
--- NOTE | 2020-09-19 19:10 | RAD ---
Chest AP view INDICATION: History of chest pain COMPARISON: May 16, 2019 chest radiograph FINDINGS: Lungs: The lungs are clear Cardiac silhouette: Stable cardiomegaly and post-CABG change Pulmonary vasculature: Normal Pleural spaces: No pleural effusion or pneumothorax is demonstrated. Upper abdomen: No abnormality seen. Osseous structures: No acute osseous abnormality. Additional findings: Coronary endograft is stable along the right heart border. IMPRESSION: No acute cardiopulmonary abnormality.
[2020-09-19 19:15] LABS: ALT (SGPT) 10 U/L (8-55); AST (SGOT) 15 U/L (5-34); Albumin 4.1 g/dL (3.4-4.8); Alkaline Phosphatase 84 U/L (40-110); Anion Gap 12 mmol/L (10-20); BUN (Urea Nitrogen) 7 mg/dL (9.8-20.1); Bilirubin, Total 0.7 mg/dL (0.2-1.2); CK (CPK) 70 U/L (29-168); Calc. Creatinine Clearance 0 mL/min (70-130); Calcium 9.3 mg/dL (7.8-10.44); Carbon Dioxide 29 mmol/L (23-31); Chloride 105 mmol/L (98-107); Estimated GFR-MDRD 56; Globulin 2.6 g/dL (2.4-3.5); Glucose 117 mg/dL (80-115); Lipase 35 U/L (8-78); Potassium 4.4 mmol/L (3.5-5.1); Protein, Total 6.7 g/dL (6.0-8.3); Sodium 142 mmol/L (136-145)
[2020-09-19] MEDS ORDERED: Nitroglycerin 2% Ointment 1 INCH/1 GM Packet ONE (19:36)
[2020-09-19] MEDS ORDERED: Aspirin Chewable 81 MG TAB ONE (19:36)
[2020-09-19] MEDS ORDERED: methylPREDNISolone Sod Succ/PF 125 MG/2 ML VIAL ONE (19:36)
[2020-09-19] MEDS ORDERED: Acetaminophen 500 MG TAB ONE (19:36)
[2020-09-19] MEDS ORDERED: Albuterol Sulfate 2.5 mg/3 ml Neb ONE (20:20)
[2020-09-19 21:03] LABS: SARS-CoV-2 NAA Rapid Test Not Detected (NotDetected)
--- NOTE | 2020-09-19 22:19 | PDOC.HHP ---
Hospitalist HPI - History of Present Illness Chest pain History of Present Illness: PCP: Matthew The patient is a 70-year-old female with a past medical history significant for CAD (1 stent), CABG (2007, 2014), COPD, CHF, HTN, HLD, GERD that presents to the emergency department for the above complaint. The patient reports developing chest pain at approximately 12:30 in the afternoon, located centrally and radiating to her back, described as stabbing and sharp pain exacerbated and relieved by nothing. She reports associated shortness of breath worsened with exertion. She reports feeling nauseous and having the dry heaves. Denies diarrhea, melena or hematochezia. She reports feeling lightheaded. She denies heart palpitations and lower extremity swelling. She denies recent cough or wheezing. Denies any recent fever or illness. She denies loss of sense of smell. She has no urinary symptoms. ED Course: VITAL SIGNS Robyn Sep 19, 2020 18:14 ASCENCION Koenig Kelsey Pulse: 61, Resp: 20, Temp: 98.1 (Oral), O2 sat: 98 on (Room Air), Time: 09/19/2020 18:14. VITAL SIGNS Robyn Sep 19, 2020 18:29 ASCENCION Elliott Nicole BP: 219/79, Time: 09/19/2020 18:29. VITAL SIGNS Robyn Sep 19, 2020 19:44 ASCENCION Baldwin, Imani BP: 185/91, MAP: 122, Pulse: 59, Resp: 18, Temp: 98.1 (Oral), Pain: 2discomfort, O2 sat: 98 on (Room Air), Time: 09/19/2020 19:44. VITAL SIGNS Robyn Sep 19, 2020 20:27 Ernst, RESPPatric Pulse: 52, Resp: 18, O2 sat: 97, Time: 09/19/2020 20:27. VITAL SIGNS Robyn Sep 19, 2020 21:26 CONCHITA Perez William BP: 192/74, Pulse: 67, Resp: 18, Temp: 98.4 (Oral), Pain: 2, O2 sat: 97 on (Room Air), Time: 09/19/2020 21:26. Medication administration: albuterol sulfate inhalation 5 mg Nebulize Given 20:09/19/2020 DuoNeb 3 mL Nebulize Given 20:27 09/19/2020 aspirin oral 243 mg Oral Given 20:17 09/19/2020 methylPREDNISolone sodium succinate inje 125 mg IV Push Given 19:56 09/19/2020 Nitro-Bid transdermal 1 inch Topical Given 19:54 09/19/2020 Tylenol 1 g Oral Given 19:53 09/19/2020 Levaquin in 5 % dextrose 750 mg IV Piggy Back Given 19:53 09/19/2020 Hospitalist ROS - Review of Systems All other systems reviewed; all pertinent +/- noted in HPI/Subj - Medication Medications: Allergies: chlorpheniramine, Novahistine Expectorant, pseudoephedrine HCl, Stadol Hospitalist History - Past Medical History Source: patient, RN notes reviewed Cardiac: reports: CAD (X1 stent (2017)), CHF, HTN, [place] (X5), Hyperlipidemia Pulmonary: reports: COPD, Other (Spot on lungsunable to get follow-up CT chest due to finances.) Gastrointestinal: reports: GERD Psych: reports: Depression Renal/: reports: Other (Overactive bladder) Endocrine: reports: Other ("Spot on thyroid"unable to get follow-up CT due to finances.) - Past Surgical History Past Surgical History: reports: Appendectomy, CABG (X2 (2015) and x4 (2006) CAD x1 (2017)), Other (Right eye surgery) - Family History Family History: reports: cardiac disorder (Mother) - Social History Smoking Status: Current every day smoker (Half pack per day times greater than 50 years) Tobacco Type: cigarettes Alcohol: reports: None Drugs: reports: none Living Situation: With Family Occupation: Does not work Activity level: independent ambulation - Exam General Appearance: NAD, awake alert. negative: ill appearing General - other findings: Resting comfortably in bed, speaks in full sentences Eye: anicteric sclera ENT: normocephalic atraumatic Neck: supple, symmetric, no JVD Heart: RRR, no murmur, no gallops, no rubs, normal peripheral pulses Respiratory: no rales, normal chest expansion, no tachypnea, rhonchi, wheezes Gastrointestinal: soft, non-tender, non-distended, normal bowel sounds, no bruit, no guarding, no rigidity Extremities: no cyanosis, no edema Skin: no rashes Neurological: no weakness, no focal deficits Psychiatric: normal affect, A&O x 3 Hospitalist Results - Labs Result Diagrams: 09/19/20 18:44 09/19/20 18:44 Lab results: WBC 8.9 thou/uL (4.8-10.8) 09/19/20 18:44 Hgb 13.9 g/dL (12.0-16.0) 09/19/20 18:44 Hct 42.1 % (36.0-47.0) 09/19/20 18:44 MCV 92.9 fL (78.0-98.0) 09/19/20 18:44 Plt Count 163 thou/uL (130-400) 09/19/20 18:44 Neutrophils % 64.7 % (42.0-75.0) 09/19/20 18:44 Sodium 142 mmol/L (136-145) 09/19/20 18:44 Potassium 4.4 mmol/L (3.5-5.1) 09/19/20 18:44 Chloride 105 mmol/L (98-107) 09/19/20 18:44 Carbon Dioxide 29 mmol/L (23-31) 09/19/20 18:44 BUN 7 mg/dL (9.8-20.1) L 09/19/20 18:44 Creatinine 0.98 mg/dL (0.6-1.1) 09/19/20 18:44 Glucose 117 mg/dL (80-115) H 09/19/20 18:44 Calcium 9.3 mg/dL (7.8-10.44) 09/19/20 18:44 Total Bilirubin 0.7 mg/dL (0.2-1.2) 09/19/20 18:44 AST 15 U/L (5-34) 09/19/20 18:44 ALT 10 U/L (8-55) 09/19/20 18:44 Alkaline Phosphatase 84 U/L (40-110) 09/19/20 18:44 Creatine Kinase 70 U/L (29-168) 09/19/20 18:44 Troponin I 0.016 ng/mL (< 0.028) 09/19/20 18:44 Serum Total Protein 6.7 g/dL (6.0-8.3) 09/19/20 18:44 Albumin 4.1 g/dL (3.4-4.8) 09/19/20 18:44 Lipase 35 U/L (8-78) 09/19/20 18:44 Urine Ketones Negative mg/dL (Negative) 09/19/20 18:30 Urine Blood Negative (Negative) 09/19/20 18:30 Urine Nitrite Negative (Negative) 09/19/20 18:30 Ur Leukocyte Esterase Negative Nayla/uL (Negative) 09/19/20 18:30 - EKG Interpretation EK LEAD EKG INTERPRETATION with some T wave inversions in the V5 and V6.Heart rate 68 QTc 440 normal sinus rhythm. - Radiology Interpretation Chest x-ray Status: report reviewed by me Additional Comment: IMPRESSION: No acute cardiopulmonary abnormality Hospitalist H&P A/P - Problem (1) COPD exacerbation Code(s): J44.1 - CHRONIC OBSTRUCTIVE PULMONARY DISEASE W (ACUTE) EXACERBATION Status: Acute (2) Chest pain Code(s): R07.9 - CHEST PAIN, UNSPECIFIED Status: Acute (3) Hypertension Code(s): I10 - ESSENTIAL (PRIMARY) HYPERTENSION Status: Chronic (4) CAD (coronary artery disease) Code(s): I25.10 - ATHSCL HEART DISEASE OF [place] CORONARY ARTERY W/O ANG PCTRS Status: Chronic (5) CHF (congestive heart failure) Code(s): I50.9 - HEART FAILURE, UNSPECIFIED Status: Chronic (6) Hyperlipidemia Code(s): E78.5 - HYPERLIPIDEMIA, UNSPECIFIED Status: Chronic (7) Tobacco abuse Code(s): Z72.0 - TOBACCO USE Status: Chronic - Plan Plan: 70/F with PMH CAD, COPD, CHF presents for chest pain and shortness of breath. Admit to telemetry floor, observation status. Expected length of stay less than 2 midnights. Presented hypertensive, NL HR, RR, SPO2, afebrile. EKG NSR, T wave inversions V5V6, no ST elevation. CXR no acute cardiopulmonary process. Trop 0.012, DD 0.43, TSH 1.523 Covid negative, UA unremarkable, CBC unremarkable. #COPD exacerbation Reports feeling much better after medications given by ED physician. A: Speaking in complete sentences. Diffuse wheezing on exam. Continue Solu-Medrol, duo nebs, Levaquin Oxygen as needed. #Chest pain Likely related to problem #1. Heart score 6. Trend troponins, check BNP, mag level, FLP. Order echocardiogram. Continue aspirin, Nitro-Bid, statin. #Hypertension Presented BP 219/79 Upon assessment, still hypertensive with Nitro-Bid. Give clonidine 0.1 mg x 1 dose now. Nursing to reconcile home meds, she took home meds this morning. Continue to monitor BP. #CAD Continue aspirin and Plavix. #CHF Does not appear to be in fluid volume overload. Check BNP. Order echocardiogram. #Hyperlipidemia Continue home dose of statin. #Tobacco abuse Half pack per day greater than 50 years. Unwilling to quit. NRT. Counseled tobacco cessation. Lovenox for DVT prophylaxis. PPI for GI prophylaxis. Full code. Discussed case with Dr. Evie Ventura.
[2020-09-19] MEDS ORDERED: Nitroglycerin 0.4 MG TAB (25 Tab Bottle) SL PRN (22:37)
[2020-09-19] MEDS ORDERED: Albuterol 200 PUFF (6.7GM INHALER) INH PRN (22:38)
[2020-09-19 22:45] LABS: Troponin I Less than 0.010 ng/mL (< 0.028)
[2020-09-19] MEDS ORDERED: Ondansetron ODT 4 MG TAB PO PRN (22:45)
[2020-09-19] MEDS ORDERED: Calcium Carbonate 500 MG ChewTAB PO PRN (22:45)
[2020-09-19] MEDS ORDERED: Acetaminophen 650 MG Suppository PR PRN (22:45)
[2020-09-19] MEDS ORDERED: Guaifenesin DM 100-10/5 ML UDCUP PO PRN (22:45)
[2020-09-19] MEDS ORDERED: Ondansetron PF 4 MG/2 ML Vial IVP PRN (22:45)
[2020-09-19] MEDS ORDERED: Senokot S 8.6-50 MG TAB PO PRN (22:45)
[2020-09-19] MEDS ORDERED: Acetaminophen 325 MG TAB PO PRN (22:45)
[2020-09-19 23:22] VITALS: BMI 22.9
[2020-09-19] MEDS: Nicotine 14 MG PATCH TD SCH (23:41)
[2020-09-19] MEDS ORDERED: cloNIDine 0.1 MG TAB PO SCH (23:45)
[2020-09-20] MEDS ORDERED: Magnesium 2 GM/50 ML 2 GM in Premix Bag 1 BAG IVPB SCH (00:15)
[2020-09-20 01:18] LABS: Troponin I 0.018 ng/mL (< 0.028)
[2020-09-20] MEDS ORDERED: Nitroglycerin 2% Ointment 1 INCH/1 GM Packet TOP SCH (04:00)
[2020-09-20 05:10] LABS: Anion Gap 13 mmol/L (10-20); BUN (Urea Nitrogen) 7 mg/dL (9.8-20.1); Calc. Creatinine Clearance 62 mL/min (70-130); Calcium 8.9 mg/dL (7.8-10.44); Carbon Dioxide 24 mmol/L (23-31); Cardiac Risk 2.5 (Less than 4.5); Chloride 107 mmol/L (98-107); Cholesterol 108 mg/dl (< 200 Desired); Estimated GFR-MDRD 66; Glucose 211 mg/dL (80-115); HDL Cholesterol 44 mg/dL (>60 Neg Risk); LDL Cholesterol, Calculated 54 mg/dL; Sodium 140 mmol/L (136-145); Triglycerides 51 mg/dL (Less than 150)
[2020-09-20] MEDS ORDERED: methylPREDNISolone Sod Succ 40 MG VIAL IVP SCH (06:00)
[2020-09-20] MEDS: Mometasone 200 MCG/Formoterol 5 MCG 120 PUFF INHALER INH SCH ×2 (07:01→18:40)
[2020-09-20 07:19] LABS: Hemoglobin 13.9 g/dL (12.0-16.0); Mean Corpuscular HGB CONC 33.7 g/dL (32.0-36.0); Mean Corpuscular Hemoglobin 31.1 pg (27.0-31.0); Mean Corpuscular Volume 92.3 fL (78.0-98.0); Platelet Count 132 thou/uL (130-400); Red Blood Cell (RBC) Count 4.47 mill/uL (4.20-5.40); White Blood Cell (WBC) Count 8.2 thou/uL (4.8-10.8)
[2020-09-20 07:24] LABS: Band 1 % (5-11); Eosinophils 1 % (0-10); Lymphocytes 4 % (21-51); MDiff Complete? YES; Monocytes 2 % (0-10); Neutrophil 92 % (42-75); RBC Morphology Normal
[2020-09-20] MEDS ORDERED: Enoxaparin Sodium 40 MG/0.4 ML SYRINGE SC SCH (09:00)
[2020-09-20] MEDS: Lisinopril 10 MG TAB PO SCH (09:24)
[2020-09-20] MEDS: Clopidogrel Bisulfate 75 MG TAB PO SCH (09:24)
[2020-09-20] MEDS: DULoxetine 30 MG CAP PO SCH ×2 (09:24→21:02)
[2020-09-20] MEDS: Aspirin 81 mg Enteric Coated Tablet PO SCH (09:24)
[2020-09-20] MEDS: Oxybutynin 5 MG TAB PO SCH ×2 (09:25→21:02)
[2020-09-20] MEDS ORDERED: cloNIDine 0.1 MG TAB PO PRN (10:12)
[2020-09-20] MEDS: methylPREDNISolone Sod Succ 40 MG VIAL IVP SCH ×2 (15:55→21:01)
[2020-09-20] MEDS ORDERED: Atorvastatin Calcium 40 MG TAB PO SCH (21:00)
[2020-09-20] MEDS ORDERED: traZODone HCl 50 MG TAB PO SCH (21:00)
[2020-09-20] MEDS: Nicotine 14 MG PATCH TD SCH ×2 (21:02→21:04)
[2020-09-21 04:57] LABS: Anion Gap 12 mmol/L (10-20); BUN (Urea Nitrogen) 10 mg/dL (9.8-20.1); Calc. Creatinine Clearance 59 mL/min (70-130); Carbon Dioxide 23 mmol/L (23-31); Chloride 108 mmol/L (98-107); Estimated GFR-MDRD 62; Glucose 171 mg/dL (80-115); Potassium 4.1 mmol/L (3.5-5.1); Sodium 139 mmol/L (136-145)
[2020-09-21 05:10] LABS: Band 13 % (5-11); Hemoglobin 12.6 g/dL (12.0-16.0); Lymphocytes 3 % (21-51); MDiff Complete? YES; Mean Corpuscular HGB CONC 33.2 g/dL (32.0-36.0); Mean Corpuscular Hemoglobin 31.3 pg (27.0-31.0); Mean Corpuscular Volume 94.3 fL (78.0-98.0); Mean Platelet Volume 9.5 fL (7.4-10.4); Monocytes 2 % (0-10); Neutrophil 82 % (42-75); Platelet Count 126 thou/uL (130-400); RBC Distribution Width 14.1 % (11.5-14.5); Red Blood Cell (RBC) Count 4.03 mill/uL (4.20-5.40); White Blood Cell (WBC) Count 20.4 thou/uL (4.8-10.8)
[2020-09-21] MEDS: methylPREDNISolone Sod Succ 40 MG VIAL IVP SCH (06:46)
[2020-09-21] MEDS: Mometasone 200 MCG/Formoterol 5 MCG 120 PUFF INHALER INH SCH (07:14)
[2020-09-21 08:41] VITALS: BP 135/63; TEMP 98.5
[2020-09-21] MEDS: Aspirin 81 mg Enteric Coated Tablet PO SCH (08:41)
[2020-09-21] MEDS: Clopidogrel Bisulfate 75 MG TAB PO SCH (08:41)
[2020-09-21] MEDS: DULoxetine 30 MG CAP PO SCH (08:41)
[2020-09-21] MEDS: Oxybutynin 5 MG TAB PO SCH (08:42)
[2020-09-21] MEDS: Lisinopril 10 MG TAB PO SCH (08:42)
--- NOTE | 2020-09-21 14:39 | DIS ---
DATE OF ADMISSION: 09/21/2020 DATE OF DISCHARGE: 09/21/2020 DISCHARGE DISPOSITION: Home. FOLLOWUP: Follow up with primary care physician, Richelle Castro in 1 week. DISCHARGE MEDICATIONS: 1. Doxycycline 100 mg b.i.d. for next 5 days. 2. Prednisone taper. 3. Albuterol inhaler as needed. 4. All other home medications were left unchanged. Patient was seen and examined on the day of discharge. Denies any new complaints. No chest pain, shortness of breath, palpitations reported. BRIEF HOSPITAL COURSE: The patient is a 70-year-old female with coronary artery disease, COPD, with ongoing smoking, presented to the emergency room with chest discomfort along with shortness of breath. The chest discomfort was substernal, radiating to her back. It was sharp pain without any aggravating or relieving factor. The shortness of breath was mainly worse on onva-[id number]-[id number] exertion. Please refer to the history and physical for further details. The patient was admitted to the telemetry unit with a diagnosis of COPD exacerbation with chest discomfort. She was placed on IV steroids along with nebulizer treatment and Levaquin with good improvement in her symptoms. The antibiotics will be switched to oral doxycycline. She has been afebrile. She will complete prednisone as outpatient. The patient had a negative D-dimer. Her troponins remained negative. She underwent an echocardiogram that showed ejection fraction 55% to 60% with diastolic dysfunction, moderate mitral regurgitation and moderate tricuspid regurgitation. She will benefit from outpatient stress test once the COPD exacerbation resolves. Lifestyle modification including tobacco cessation was emphasized. FINAL DIAGNOSES: 1. Chronic obstructive pulmonary disease exacerbation. 2. Chest discomfort, acute coronary syndrome ruled out. 3. Hypertension. 4. Ongoing tobacco abuse. 5. Coronary artery disease. 6. Chronic diastolic heart failure. 7. Hyperlipidemia. 8. Moderate mitral regurgitation. 9. Moderate tricuspid regurgitation. The patient understands the above plan of care. Job ID: [id number]
[2020-09-21] MEDS ORDERED: predniSONE 20 MG TAB PO SCH (17:00)
== END 2020-09-21 11:45 | disposition home or self-care (01) | DRG 191 ==
LOC: ERS 18:12 → 2NO 21:41 → OBSVTOIN 09-21 08:06
PROVIDERS: ADMIT Internal Medicine; ATTEND Internal Medicine
DX: J44.1 Chronic obstructive pulmonary disease with (acute) exacerbation (principal); I50.32 Chronic diastolic (congestive) heart failure; I11.0 Hypertensive heart disease with heart failure; E78.5 Hyperlipidemia, unspecified; I25.10 Atherosclerotic heart disease of native coronary artery without angina pectoris; F17.210 Nicotine dependence, cigarettes, uncomplicated; I08.1 Rheumatic disorders of both mitral and tricuspid valves; Z20.828 Contact with and (suspected) exposure to other viral communicable diseases; K21.9 Gastro-esophageal reflux disease without esophagitis; F32.9 Major depressive disorder, single episode, unspecified; Z95.5 Presence of coronary angioplasty implant and graft; I25.2 Old myocardial infarction; Z90.49 Acquired absence of other specified parts of digestive tract; Z95.1 Presence of aortocoronary bypass graft
CPT/HCPCS: 36415; 71045; 80048; 80053; 80061; 81003; 82550; 83690; 83735; 83880; 84443; 84484; 85025; 85379; 93005; 93306; 94640; 94664; 94760; 96366; 96375; 96376; G0378; J1956; J2920; J2930; J3475; J7611; J7620; U0002

== ENCOUNTER 2021-05-29 23:42 | Emergency (ER) | payer MEDICARE ==
[2021-05-30] MEDS ORDERED: Morphine 4 MG/ML VIAL ONE (00:13)
[2021-05-30] MEDS ORDERED: Ondansetron PF 4 MG/2 ML Vial ONE (00:13)
[2021-05-30 00:28] LABS: #Basophils 0.1 thou/uL (0.0-0.2); #Eosinphils 0.2 thou/uL (0.0-0.7); #Lymphocytes 2.1 thou/uL (1.20-3.40); #Monocytes 0.9 thou/uL (0.11-0.59); #Neutrophils 6.5 thou/uL (1.40-6.50); %Basophils 0.8 % (0.0-1.0); %Eosinophils 1.9 % (0.0-10.0); %Lymphocytes 21.6 % (21.0-51.0); %Monocytes 8.9 % (0.0-10.0); %Neutrophils 66.8 % (42.0-75.0); Hemoglobin 12.7 g/dL (12.0-16.0); Mean Corpuscular Hemoglobin 30.3 pg (27.0-31.0); Mean Corpuscular Volume 91.9 fL (78.0-98.0); Mean Platelet Volume 9.4 fL (7.4-10.4); Platelet Count 150 thou/uL (130-400); RBC Distribution Width 14.1 % (11.5-14.5); Red Blood Cell (RBC) Count 4.18 mill/uL (4.20-5.40); White Blood Cell (WBC) Count 9.8 thou/uL (4.8-10.8)
[2021-05-30 00:47] LABS: ALT (SGPT) Less than 7 U/L (8-55); AST (SGOT) 11 U/L (5-34); Albumin 3.3 g/dL (3.4-4.8); Alkaline Phosphatase 88 U/L (40-110); Anion Gap 14 mmol/L (10-20); BUN (Urea Nitrogen) 6 mg/dL (9.8-20.1); Bilirubin, Total 0.5 mg/dL (0.2-1.2); Calc. Creatinine Clearance 0 mL/min (70-130); Calcium 8.8 mg/dL (7.8-10.44); Carbon Dioxide 26 mmol/L (23-31); Chloride 102 mmol/L (98-107); Globulin 2.5 g/dL (2.4-3.5); Glucose 112 mg/dL (80-115); Lipase 20 U/L (8-78); Potassium 3.3 mmol/L (3.5-5.1); Protein, Total 5.8 g/dL (5.8-8.1); Sodium 139 mmol/L (136-145)
[2021-05-30] MEDS ORDERED: Fentanyl 100 MCG/2 ML VIAL ONE (01:10)
[2021-05-30 01:22] LABS: Bilirubin Negative (Negative); Blood, Urine Negative (Negative); Clarity Clear (Clear); Glucose, Urine (Dipstick) Normal (Negative); Ketone, Urine Negative (Negative); Leukocyte Negative Leu/uL (Negative); Nitrite Negative (Negative); Protein, Urine (Dipstick) 20 mg/dL (Neg-Trace); Specific Gravity, Urine 1.031 (1.002-1.036)
== END 2021-05-30 02:18 | disposition home or self-care (01) ==
LOC: ERS 23:42
DX: R10.12 Left upper quadrant pain (principal); I25.10 Atherosclerotic heart disease of native coronary artery without angina pectoris; I25.2 Old myocardial infarction; I10 Essential (primary) hypertension; J44.9 Chronic obstructive pulmonary disease, unspecified; F17.210 Nicotine dependence, cigarettes, uncomplicated
CPT/HCPCS: 36415; 74176; 80053; 81003; 83690; 85025; 93005; 96374; 96375; J2270; J2405; J3010

== ENCOUNTER 2021-10-01 17:32 | Emergency (ER) | payer MEDICARE ==
[2021-10-02 12:04] LABS: SARS-CoV-2 PCR by NAA Not Detected (NotDetected)
== END 2021-10-01 19:12 | disposition home or self-care (01) ==
LOC: ERS 17:32
DX: J44.1 Chronic obstructive pulmonary disease with (acute) exacerbation (principal); Z20.822 Contact with and (suspected) exposure to COVID-19; I25.10 Atherosclerotic heart disease of native coronary artery without angina pectoris; I25.2 Old myocardial infarction; I10 Essential (primary) hypertension; F17.210 Nicotine dependence, cigarettes, uncomplicated; Z79.82 Long term (current) use of aspirin; Z79.899 Other long term (current) drug therapy
CPT/HCPCS: 71045; 99283; U0003; U0005

== ENCOUNTER 2021-12-01 15:00 | Emergency (ER) | payer OTHER, MEDICARE ==
[2021-12-02 15:08] LABS: SARS-CoV-2 PCR by NAA Not Detected (NotDetected)
== END 2021-12-01 17:09 | disposition home or self-care (01) ==
LOC: ERS 15:00
DX: U07.1 COVID-19 (principal); I10 Essential (primary) hypertension
CPT/HCPCS: 99283; U0003; U0005

== ENCOUNTER 2022-03-27 05:50 | Observation (INO) | payer MEDICARE, OTHER ==
[2022-03-27] MEDS ORDERED: Aspirin Chewable 81 MG TAB ONE (06:04)
[2022-03-27 06:37] LABS: #Eosinphils 0.1 thou/uL (0.0-0.7); #Lymphocytes 1.3 thou/uL (1.20-3.40); #Monocytes 0.7 thou/uL (0.11-0.59); #Neutrophils 6.3 thou/uL (1.40-6.50); %Basophils 0.5 % (0.0-1.0); %Eosinophils 0.8 % (0.0-10.0); %Lymphocytes 15.4 % (21.0-51.0); %Neutrophils 75.4 % (42.0-75.0); Hemoglobin 13.4 g/dL (12.0-16.0); Mean Corpuscular HGB CONC 33.7 g/dL (32.0-36.0); Mean Corpuscular Hemoglobin 31.8 pg (27.0-31.0); Mean Corpuscular Volume 94.5 fL (78.0-98.0); Mean Platelet Volume 9.4 fL (7.4-10.4); Platelet Count 124 thou/uL (130-400); RBC Distribution Width 13.2 % (11.5-14.5); Red Blood Cell (RBC) Count 4.22 mill/uL (4.20-5.40); White Blood Cell (WBC) Count 8.3 thou/uL (4.8-10.8)
[2022-03-27 06:55] LABS: ALT (SGPT) Less than 7 U/L (8-55); AST (SGOT) 10 U/L (5-34); Albumin 3.7 g/dL (3.4-4.8); Alkaline Phosphatase 86 U/L (40-110); Anion Gap 13 mmol/L (10-20); BUN (Urea Nitrogen) 4 mg/dL (9.8-20.1); Calc. Creatinine Clearance 0 mL/min (70-130); Calcium 9.1 mg/dL (7.8-10.44); Carbon Dioxide 27 mmol/L (23-31); Chloride 103 mmol/L (98-107); Globulin 2.5 g/dL (2.4-3.5); Glucose 120 mg/dL (80-115); Protein, Total 6.2 g/dL (5.8-8.1); Sodium 140 mmol/L (136-145)
[2022-03-27 07:02] LABS: Potassium 2.6 mmol/L (3.5-5.1)
[2022-03-27 07:28] LABS: Magnesium 1.9 mg/dL (1.6-2.6)
[2022-03-27] MEDS ORDERED: Lisinopril 10 MG TAB ONE (07:29)
[2022-03-27] MEDS ORDERED: Potassium Chloride 20 MEQ TAB ONE (07:29)
[2022-03-27] MEDS ORDERED: Potassium Chloride 20 MEQ/100 ML PREMIX BAG ONE (07:29)
[2022-03-27] MEDS ORDERED: Acetaminophen 325 MG TAB PO PRN (09:17)
[2022-03-27] MEDS ORDERED: Ondansetron ODT 4 MG TAB PO PRN (09:17)
[2022-03-27] MEDS ORDERED: Ondansetron PF 4 MG/2 ML Vial IVP PRN (09:17)
[2022-03-27] MEDS ORDERED: Nitroglycerin 0.4 MG TAB (25 Tab Bottle) SL PRN ×2 (09:25→10:44)
[2022-03-27] MEDS ORDERED: hydrALAZINE 20 MG/ML VIAL SLOW IVP PRN (09:54)
[2022-03-27 09:56] VITALS: BMI 21.2
[2022-03-27] MEDS ORDERED: Metoprolol Tartrate 25 MG TAB PO SCH ×2 (10:00→21:00)
[2022-03-27 10:12] LABS: Troponin I 0.016 ng/mL (< 0.028)
[2022-03-27] MEDS ORDERED: Non-Formulary Item 1 EACH (Albuterol Sulfate [Proair Hfa] 8.5 GM Hfa.Aer.Ad) INH PRN (10:44)
[2022-03-27] MEDS ORDERED: Albuterol 200 PUFF (6.7GM INHALER) INH PRN (10:56)
[2022-03-27] MEDS: Nitroglycerin 2% Ointment 1 INCH/1 GM Packet TOP SCH ×2 (11:29→18:06)
[2022-03-27 13:06] LABS: Troponin I 0.015 ng/mL (< 0.028)
[2022-03-27 15:55] LABS: SARS-CoV-2 PCR by NAA Not Detected (NotDetected)
[2022-03-27] MEDS: Mometasone 200 MCG/Formoterol 5 MCG 120 PUFF INHALER INH SCH (19:43)
[2022-03-27 19:45] LABS: Anion Gap 10 mmol/L (10-20); BUN (Urea Nitrogen) 7 mg/dL (9.8-20.1); Calc. Creatinine Clearance 52 mL/min (70-130); Calcium 8.9 mg/dL (7.8-10.44); Carbon Dioxide 29 mmol/L (23-31); Chloride 103 mmol/L (98-107); Glucose 129 mg/dL (80-115); Potassium 3.8 mmol/L (3.5-5.1); Sodium 138 mmol/L (136-145)
[2022-03-27] MEDS: DULoxetine 30 MG CAP PO SCH (19:52)
[2022-03-27] MEDS: Oxybutynin 5 MG TAB PO SCH (19:52)
[2022-03-27] MEDS ORDERED: traZODone HCl 50 MG TAB PO SCH (21:00)
[2022-03-27] MEDS ORDERED: Atorvastatin Calcium 20 MG TAB PO SCH (21:00)
[2022-03-27] MEDS ORDERED: Non-Formulary Item 1 EACH (Budesonide-Formoterol [Symbicort 160-4.5] 160 MG/4.5 MG Aer) INH SCH (21:00)
[2022-03-27] MEDS ORDERED: Atorvastatin Calcium 40 MG TAB PO SCH (21:00)
[2022-03-28] MEDS: Nitroglycerin 2% Ointment 1 INCH/1 GM Packet TOP SCH ×2 (01:22→11:25)
[2022-03-28 04:48] LABS: #Basophils 0.1 thou/uL (0.0-0.2); #Eosinphils 0.2 thou/uL (0.0-0.7); #Lymphocytes 2.3 thou/uL (1.20-3.40); #Monocytes 0.7 thou/uL (0.11-0.59); #Neutrophils 3.9 thou/uL (1.40-6.50); %Basophils 0.7 % (0.0-1.0); %Eosinophils 2.7 % (0.0-10.0); %Lymphocytes 32.3 % (21.0-51.0); %Monocytes 9.8 % (0.0-10.0); %Neutrophils 54.5 % (42.0-75.0); Hemoglobin 12.4 g/dL (12.0-16.0); Mean Corpuscular HGB CONC 33.5 g/dL (32.0-36.0); Mean Corpuscular Hemoglobin 32.2 pg (27.0-31.0); Mean Corpuscular Volume 96.1 fL (78.0-98.0); Mean Platelet Volume 9.2 fL (7.4-10.4); Platelet Count 105 thou/uL (130-400); RBC Distribution Width 13.4 % (11.5-14.5); Red Blood Cell (RBC) Count 3.85 mill/uL (4.20-5.40); White Blood Cell (WBC) Count 7.2 thou/uL (4.8-10.8)
[2022-03-28 05:02] LABS: Anion Gap 12 mmol/L (10-20); BUN (Urea Nitrogen) 8 mg/dL (9.8-20.1); Calc. Creatinine Clearance 62 mL/min (70-130); Calcium 8.7 mg/dL (7.8-10.44); Carbon Dioxide 28 mmol/L (23-31); Chloride 104 mmol/L (98-107); Glucose 93 mg/dL (80-115); Potassium 3.3 mmol/L (3.5-5.1); Sodium 141 mmol/L (136-145)
[2022-03-28] MEDS: Mometasone 200 MCG/Formoterol 5 MCG 120 PUFF INHALER INH SCH (06:42)
[2022-03-28] MEDS: Oxybutynin 5 MG TAB PO SCH (07:55)
[2022-03-28] MEDS: DULoxetine 30 MG CAP PO SCH (07:55)
[2022-03-28] MEDS ORDERED: Clopidogrel Bisulfate 75 MG TAB PO SCH (09:00)
[2022-03-28] MEDS ORDERED: Aspirin 81 mg Enteric Coated Tablet PO SCH (09:00)
[2022-03-28] MEDS ORDERED: Lisinopril 10 MG TAB PO SCH (09:00)
[2022-03-28] MEDS ORDERED: Lisinopril 5 MG TAB PO SCH (09:00)
[2022-03-28] MEDS ORDERED: Potassium Chloride 20 MEQ TAB PO SCH (12:00)
[2022-03-28 12:34] VITALS: BP 177/78; TEMP 97.6
[2022-03-28] MEDS ORDERED: Regadenoson 0.4 MG/5 ML SYRINGE ONE (13:54)
[2022-03-28] MEDS ORDERED: Amlodipine 5 MG TAB PO SCH (21:00)
== END 2022-03-28 15:35 | disposition home or self-care (01) ==
LOC: ERS 05:50 → 2SW 07:39
PROVIDERS: ADMIT Internal Medicine; ATTEND Internal Medicine
DX: R07.89 Other chest pain (principal); I11.9 Hypertensive heart disease without heart failure; I25.10 Atherosclerotic heart disease of native coronary artery without angina pectoris; F17.210 Nicotine dependence, cigarettes, uncomplicated; J44.9 Chronic obstructive pulmonary disease, unspecified; E78.5 Hyperlipidemia, unspecified; E87.6 Hypokalemia; K21.9 Gastro-esophageal reflux disease without esophagitis; Z79.02 Long term (current) use of antithrombotics/antiplatelets; Z79.82 Long term (current) use of aspirin; Z79.899 Other long term (current) drug therapy; Z88.8 Allergy status to other drugs, medicaments and biological substances; Z95.1 Presence of aortocoronary bypass graft; Z95.5 Presence of coronary angioplasty implant and graft; Z98.1 Arthrodesis status; Z20.822 Contact with and (suspected) exposure to COVID-19
CPT/HCPCS: 71045; 78452; 80048 ×2; 80053; 83735; 84484 ×2; 85025 ×2; 93005; 93017; 94640 ×2; 94664; 94760; 96365; 96366; 99285; A9500; U0003; U0005; 36415; G0378; J2785; J3480

== ENCOUNTER 2024-01-17 17:36 | Inpatient (IN) | payer MEDICARE, OTHER ==
[~2024-01-17 17:36] MED LIST changes: -ISOVUE-370 76%-LOCM 1 ML ONE; +Iopamidol-370 76% 500 ML MDV (1 ML CHARGE) ONE
[2024-01-17 18:47] LABS: #Basophils 0.1 thou/uL (0.0-0.2); #Neutrophils 16.1 thou/uL (1.40-6.50); %Basophils 0.3 % (0.0-1.0); %Eosinophils 0.2 % (0.0-10.0); %Lymphocytes 5.5 % (21.0-51.0); %Monocytes 5.4 % (0.0-10.0); %Neutrophils 88.2 % (42.0-75.0); Hematocrit 46.1 % (36.0-47.0); Hemoglobin 15.7 g/dL (12.0-16.0); Mean Corpuscular HGB CONC 34.1 g/dL (32.0-36.0); Mean Corpuscular Hemoglobin 29.3 pg (27.0-31.0); Mean Corpuscular Volume 86.2 fl (78.0-98.0); Mean Platelet Volume 10.3 fL (7.4-10.4); Platelet Count 170 10x3/uL (130-400); RBC Distribution Width 13.8 % (11.5-14.5); Red Blood Cell (RBC) Count 5.35 mill/uL (4.20-5.40); White Blood Cell (WBC) Count 18.3 10x3/uL (4.8-10.8)
[2024-01-17 19:16] LABS: ALT (SGPT) 10 U/L (8-55); AST (SGOT) 13 U/L (5-34); Albumin 3.8 g/dL (3.4-4.8); Alkaline Phosphatase 90 U/L (40-110); Anion Gap 12 mmol/L (10-20); BUN (Urea Nitrogen) 11 mg/dL (9.8-20.1); Bilirubin, Total 0.8 mg/dL (0.2-1.2); Calc. Creatinine Clearance 0 mL/min (70-130); Calcium 9.5 mg/dL (7.8-10.44); Carbon Dioxide 32 mmol/L (23-31); Chloride 95 mmol/L (98-107); Estimated GFR 56; Globulin 3.1 g/dL (2.4-3.5); Glucose 123 mg/dL (83-110); Lipase 23 U/L (8-78); Protein, Total 6.9 g/dL (5.8-8.1); Sodium 136 mmol/L (136-145)
[2024-01-17 19:17] LABS: Troponin I 0.011 ng/mL (< 0.028)
[2024-01-17] MEDS ORDERED: Potassium Chloride 20 MEQ TAB ONE (21:00)
[2024-01-17] MEDS ORDERED: Aspirin Chewable 81 MG TAB ONE (21:00)
[2024-01-17] MEDS ORDERED: Potassium Chloride 20 MEQ (100 mL) BAG ONE (21:00)
[2024-01-17 21:37] LABS: Magnesium 2.1 mg/dL (1.6-2.6)
[2024-01-17] MEDS ORDERED: Ondansetron PF 4 MG/2 ML Vial IVP PRN (21:41)
[2024-01-17 23:11] LABS: Bacteria/HPF 1+ HPF (None Seen); Bilirubin Negative (Negative); Blood, Urine Negative (Negative); CAUTI Indications for Culture Dysuria,urgency,freq; Clarity Clear (Clear); Glucose, Urine (Dipstick) Normal (Negative); Ketone, Urine Negative (Negative); Leukocyte Negative Leu/uL (Negative); Nitrite Negative (Negative); Protein, Urine (Dipstick) Negative (Neg-Trace); RBC/HPF 0-3 HPF (0-3); Specific Gravity, Urine 1.005 (1.002-1.036); Squamous Epithelial 0-3 HPF (0-3); Urobilinogen Normal mg/dL (Less than 2); WBC/HPF 0-3 HPF (0-3)
[2024-01-17 23:12] LABS: Urine Culture Reflex No No
[2024-01-18 01:35] LABS: Troponin I Less than 0.010 ng/mL (< 0.028)
[2024-01-18 04:00] VITALS: BMI 22.4
[2024-01-18 04:27] LABS: #Basophils 0.1 thou/uL (0.0-0.2); #Eosinphils 0.3 thou/uL (0.0-0.7); #Neutrophils 8.1 thou/uL (1.40-6.50); %Basophils 0.5 % (0.0-1.0); %Eosinophils 2.7 % (0.0-10.0); %Lymphocytes 22.9 % (21.0-51.0); %Monocytes 7.8 % (0.0-10.0); %Neutrophils 65.8 % (42.0-75.0); Hematocrit 39.1 % (36.0-47.0); Hemoglobin 13.3 g/dL (12.0-16.0); Mean Corpuscular Hemoglobin 29.4 pg (27.0-31.0); Mean Corpuscular Volume 86.5 fl (78.0-98.0); Mean Platelet Volume 10.3 fL (7.4-10.4); Platelet Count 151 10x3/uL (130-400); RBC Distribution Width 14.1 % (11.5-14.5); Red Blood Cell (RBC) Count 4.52 mill/uL (4.20-5.40); White Blood Cell (WBC) Count 12.3 10x3/uL (4.8-10.8)
[2024-01-18 04:50] LABS: Anion Gap 9 mmol/L (10-20); BUN (Urea Nitrogen) 10 mg/dL (9.8-20.1); Calc. Creatinine Clearance 56 mL/min (70-130); Calcium 8.9 mg/dL (7.8-10.44); Carbon Dioxide 28 mmol/L (23-31); Chloride 105 mmol/L (98-107); Estimated GFR 70; Glucose 86 mg/dL (83-110); Magnesium 2.1 mg/dL (1.6-2.6); Potassium 3.5 mmol/L (3.5-5.1); Sodium 138 mmol/L (136-145)
[2024-01-18 04:55] LABS: Troponin I 0.014 ng/mL (< 0.028)
[2024-01-18] MEDS ORDERED: Furosemide 40 MG TAB ONE (07:23)
[2024-01-18] MEDS: Furosemide 40 MG TAB PO SCH (07:27)
[2024-01-18] MEDS ORDERED: Senokot S 8.6-50 MG TAB ONE (08:59)
[2024-01-18] MEDS ORDERED: Metoprolol Tartrate 25 MG TAB ONE (08:59)
[2024-01-18] MEDS ORDERED: Clopidogrel Bisulfate 75 MG TAB ONE (08:59)
[2024-01-18] MEDS ORDERED: Polyethylene Glycol 3350 17 GM Packet ONE (08:59)
[2024-01-18] MEDS ORDERED: Potassium Chloride 20 MEQ TAB ONE (08:59)
[2024-01-18] MEDS ORDERED: Aspirin 81 mg Enteric Coated Tablet ONE (08:59)
[2024-01-18] MEDS: Potassium Chloride 20 MEQ TAB PO SCH (09:05)
[2024-01-18] MEDS: Aspirin 81 mg Enteric Coated Tablet PO SCH (09:05)
[2024-01-18] MEDS: Clopidogrel Bisulfate 75 MG TAB PO SCH (09:06)
[2024-01-18] MEDS: Senokot S 8.6-50 MG TAB PO SCH (09:09)
[2024-01-18] MEDS: Polyethylene Glycol 3350 17 GM Packet PO SCH (09:10)
[2024-01-18] MEDS: Isosorbide Mononitrate 30 MG ER.TAB PO SCH (09:38)
[2024-01-18] MEDS: Oxybutynin 5 MG TAB PO SCH (09:39)
[2024-01-18] MEDS ORDERED: Ibuprofen 200 MG TAB ONE (12:36)
[2024-01-18] MEDS: Ibuprofen 200 MG TAB PO SCH (12:40)
[2024-01-18] MEDS: Atorvastatin Calcium 40 MG TAB PO SCH (22:38)
[2024-01-19] MEDS: Acetaminophen 325 MG TAB PO PRN (08:20)
[2024-01-19] MEDS ORDERED: Non-Formulary Item 1 EACH (Budesonide-Formoterol [Symbicort 160-4.5] 160 MG/4.5 MG Aer) INH SCH (09:32)
[2024-01-19] MEDS ORDERED: Senokot S 8.6-50 MG TAB PO PRN (09:57)
[2024-01-19] MEDS ORDERED: Polyethylene Glycol 3350 17 GM Packet PO PRN (09:57)
[2024-01-19] MEDS: DULoxetine 30 MG CAP PO SCH (10:29)
[2024-01-19 10:37] LABS: #Basophils 0.1 thou/uL (0.0-0.2); #Eosinphils 0.4 thou/uL (0.0-0.7); #Monocytes 0.6 thou/uL (0.11-0.59); #Neutrophils 4.4 thou/uL (1.40-6.50); %Basophils 0.7 % (0.0-1.0); %Lymphocytes 27.5 % (21.0-51.0); %Monocytes 7.8 % (0.0-10.0); %Neutrophils 58.6 % (42.0-75.0); Mean Corpuscular HGB CONC 33.3 g/dL (32.0-36.0); Mean Corpuscular Hemoglobin 29.3 pg (27.0-31.0); Mean Platelet Volume 10.6 fL (7.4-10.4); Platelet Count 140 10x3/uL (130-400); RBC Distribution Width 14.2 % (11.5-14.5); Red Blood Cell (RBC) Count 4.43 mill/uL (4.20-5.40); White Blood Cell (WBC) Count 7.4 10x3/uL (4.8-10.8)
[2024-01-19 10:52] LABS: Anion Gap 11 mmol/L (10-20); BUN (Urea Nitrogen) 11 mg/dL (9.8-20.1); Calc. Creatinine Clearance 46 mL/min (70-130); Calcium 8.8 mg/dL (7.8-10.44); Carbon Dioxide 25 mmol/L (23-31); Chloride 106 mmol/L (98-107); Estimated GFR 56; Glucose 91 mg/dL (83-110); Magnesium 1.7 mg/dL (1.6-2.6); Potassium 3.9 mmol/L (3.5-5.1); Sodium 138 mmol/L (136-145)
[2024-01-19] MEDS: Albuterol 2.5 MG (3 mL) NEB NEB SCH ×2 (13:42→18:38)
[2024-01-19] MEDS: Mometasone 200 MCG/Formoterol 5 MCG 120 PUFF INHALER INH SCH (18:46)
[2024-01-19] MEDS: traZODone HCl 50 MG TAB PO SCH (21:07)
[2024-01-19] MEDS: Sacubitril 24MG/Valsartan 26 MG TAB PO SCH (21:07)
[2024-01-20 08:47] VITALS: BP 148/65; TEMP 98.1
== END 2024-01-20 11:30 | disposition home or self-care (01) | DRG 293 ==
LOC: ERS 17:36 → ERHOLD 21:41 → 2SW 01-18 14:47 → OBSVTOIN 01-19 13:26
PROVIDERS: ADMIT Internal Medicine; ATTEND Family Medicine
DX: I11.0 Hypertensive heart disease with heart failure (principal); E78.5 Hyperlipidemia, unspecified; I25.10 Atherosclerotic heart disease of native coronary artery without angina pectoris; J44.9 Chronic obstructive pulmonary disease, unspecified; F41.9 Anxiety disorder, unspecified; F32.A Depression, unspecified; F17.210 Nicotine dependence, cigarettes, uncomplicated; I50.42 Chronic combined systolic (congestive) and diastolic (congestive) heart failure; K59.00 Constipation, unspecified; D72.829 Elevated white blood cell count, unspecified; E87.6 Hypokalemia; K80.20 Calculus of gallbladder without cholecystitis without obstruction; N32.81 Overactive bladder; I42.9 Cardiomyopathy, unspecified; I25.5 Ischemic cardiomyopathy; Z79.899 Other long term (current) drug therapy; Z88.8 Allergy status to other drugs, medicaments and biological substances; Z79.82 Long term (current) use of aspirin; Z95.5 Presence of coronary angioplasty implant and graft; Z90.49 Acquired absence of other specified parts of digestive tract; Z95.1 Presence of aortocoronary bypass graft; Z98.890 Other specified postprocedural states; Z82.49 Family history of ischemic heart disease and other diseases of the circulatory system
CPT/HCPCS: 36415; 71046; 74177; 80048; 80053; 81001; 83690; 83735; 84484; 85025; 93005; 93306; 94640; 94664; G0378; J3480; J7611; Q9967

== ENCOUNTER 2024-02-23 11:03 | Inpatient (IN) | payer MEDICARE ==
[2024-02-23] MEDS ORDERED: dilTIAZem 125 MG/25 ML SDV ONE (11:33)
[2024-02-23 11:49] LABS: #Basophils 0.06 10x3/uL (0.0-0.2); %Basophils 0.7 % (0.0-1.0); %Eosinophils 1.9 % (0.0-10.0); %Lymphocytes 20.9 % (21.0-51.0); %Monocytes 6.5 % (0.0-10.0); %Neutrophils 69.7 % (42.0-75.0); Hematocrit 39.6 % (36.0-47.0); Hemoglobin 13.5 g/dL (12.0-16.0); Mean Corpuscular HGB CONC 34.1 g/dL (32.0-36.0); Mean Corpuscular Hemoglobin 29.7 pg (27.0-31.0); Mean Platelet Volume 11.3 fL (7.4-10.4); Platelet Count 168 10x3/uL (130-400); RBC Distribution Width 17.5 % (11.5-14.5); Red Blood Cell (RBC) Count 4.55 mill/uL (4.20-5.40)
[2024-02-23 12:00] LABS: Prothrombin Time 13.3 sec (12.0-14.7)
[2024-02-23 12:02] LABS: PTT 28.6 sec (22.9-36.1)
[2024-02-23 12:04] LABS: D-Dimer Test 1.4 mcg/mL (0.27-0.43)
[2024-02-23 12:08] LABS: Troponin I 0.016 ng/mL (< 0.028)
[2024-02-23 12:25] LABS: Albumin 3.8 g/dL (3.4-4.8)
[2024-02-23 12:27] LABS: Chloride 105 mmol/L (98-107); Potassium 4.2 mmol/L (3.5-5.1); Sodium 141 mmol/L (136-145)
[2024-02-23 12:28] LABS: Globulin 2.4 g/dL (2.4-3.5); Glucose 160 mg/dL (83-110); Protein, Total 6.2 g/dL (5.8-8.1)
[2024-02-23 12:29] LABS: Anion Gap 17 mmol/L (10-20); Carbon Dioxide 23 mmol/L (23-31)
[2024-02-23 12:30] LABS: Bilirubin, Total 1.1 mg/dL (0.2-1.2)
[2024-02-23 12:31] LABS: Alkaline Phosphatase 86 U/L (40-110); Calc. Creatinine Clearance 0 mL/min (70-130); Estimated GFR 49
[2024-02-23 12:32] LABS: BUN (Urea Nitrogen) 9 mg/dL (9.8-20.1)
[2024-02-23 12:33] LABS: AST (SGOT) 18 U/L (5-34); Magnesium 1.8 mg/dL (1.6-2.6)
[2024-02-23 12:34] LABS: ALT (SGPT) 19 U/L (8-55); Lipase 14 U/L (8-78)
[2024-02-23] MEDS ORDERED: Sodium Chloride 0.9% 100 ML ONE (13:56)
[2024-02-23] MEDS ORDERED: cefTRIAXone (ROCEPHIN) 1 GM VIAL ONE (13:56)
[2024-02-23] MEDS ORDERED: Azithromycin 500 MG VIAL ONE (14:33)
[2024-02-23 16:11] VITALS: BMI 25.6
[2024-02-23] MEDS: Mometasone 200 MCG/Formoterol 5 MCG 120 PUFF INHALER INH SCH (18:52)
[2024-02-23] MEDS: Atorvastatin Calcium 40 MG TAB PO SCH (20:59)
[2024-02-23] MEDS: Sacubitril 24MG/Valsartan 26 MG TAB PO SCH (20:59)
[2024-02-23] MEDS: Famotidine 20 MG TAB PO SCH (20:59)
[2024-02-23] MEDS: Metoprolol Tartrate 5 MG (5 mL) VIAL IVP SCH (23:46)
[2024-02-23 23:55] LABS: #Basophils 0.07 10x3/uL (0.0-0.2); %Basophils 0.8 % (0.0-1.0); %Eosinophils 2.9 % (0.0-10.0); %Lymphocytes 30.8 % (21.0-51.0); %Monocytes 8.2 % (0.0-10.0); %Neutrophils 57.1 % (42.0-75.0); Hematocrit 38.2 % (36.0-47.0); Hemoglobin 12.9 g/dL (12.0-16.0); Mean Corpuscular HGB CONC 33.8 g/dL (32.0-36.0); Mean Corpuscular Hemoglobin 29.6 pg (27.0-31.0); Mean Corpuscular Volume 87.6 fL (78.0-98.0); Mean Platelet Volume 11.6 fL (7.4-10.4); Platelet Count 152 10x3/uL (130-400); RBC Distribution Width 17.7 % (11.5-14.5); Red Blood Cell (RBC) Count 4.36 mill/uL (4.20-5.40)
[2024-02-24] MEDS: Acetaminophen 325 MG TAB PO PRN (00:14)
[2024-02-24] MEDS: Metoprolol Tartrate 5 MG (5 mL) VIAL IVP SCH ×2 (00:15→00:45)
[2024-02-24 00:22] LABS: Anion Gap 12 mmol/L (10-20); BUN (Urea Nitrogen) 8 mg/dL (9.8-20.1); Calc. Creatinine Clearance 61 mL/min (70-130); Calcium 8.8 mg/dL (7.8-10.44); Carbon Dioxide 21 mmol/L (23-31); Chloride 108 mmol/L (98-107); Estimated GFR 66; Glucose 98 mg/dL (83-110); Magnesium 1.8 mg/dL (1.6-2.6); Potassium 3.9 mmol/L (3.5-5.1); Sodium 137 mmol/L (136-145)
[2024-02-24] MEDS: Magnesium 2 GM/50 ML(in water) 2 GM in Premix 1 BAG IVPB SCH ×2 (00:46→13:58)
[2024-02-24] MEDS ORDERED: dilTIAZem 25 MG/5 ML VIAL SLOW IVP SCH ×2 (01:00→01:15)
[2024-02-24] MEDS: Furosemide 20 MG (2 mL) VIAL SLOW IVP SCH ×2 (02:02→05:51)
[2024-02-24] MEDS: dilTIAZem 25 MG/5 ML VIAL SLOW IVP SCH (09:26)
[2024-02-24] MEDS: Digoxin 0.5 MG/2 ML AMP SLOW IVP SCH (09:26)
[2024-02-24] MEDS: Enoxaparin 40 MG (0.4 mL) SYRINGE SC SCH (09:27)
[2024-02-24] MEDS: Clopidogrel Bisulfate 75 MG TAB PO SCH (09:28)
[2024-02-24] MEDS: DULoxetine 30 MG CAP PO SCH (09:28)
[2024-02-24] MEDS: Aspirin 81 mg Enteric Coated Tablet PO SCH (09:28)
[2024-02-24] MEDS: Isosorbide Mononitrate 30 MG ER.TAB PO SCH (09:28)
[2024-02-24] MEDS: Oxybutynin 5 MG TAB PO SCH (09:28)
[2024-02-24] MEDS: dilTIAZem 125 MG in Sodium Chloride 0.9% 100 ML IVPB SCH (09:30)
[2024-02-24] MEDS ORDERED: Electrolyte Replacement Protocol 1 EACH FS SCH (11:45)
[2024-02-24 12:03] LABS: Magnesium 1.9 mg/dL (1.6-2.6)
[2024-02-24 13:19] LABS: Influenza A by NAA Not Detected (NotDetected); Influenza B by NAA Not Detected (NotDetected); RSV by NAA Not Detected (NotDetected); SARS-CoV-2 NAA Rapid Test Not Detected (NotDetected)
[2024-02-24] MEDS: Furosemide 40 MG (4 mL) VIAL SLOW IVP SCH (13:58)
[2024-02-24] MEDS ORDERED: cefTRIAXone\\ROCEPHIN 1 GM in Sodium Chloride 0.9% 100 ML IVPB SCH (14:00)
[2024-02-24] MEDS: Azithromycin 500 MG in Sodium Chloride 0.9% 250 ML 250 ML IVPB SCH (15:14)
[2024-02-24] MEDS: traZODone HCl 50 MG TAB PO SCH (20:53)
[2024-02-24] MEDS: Apixaban 5 MG TAB PO SCH (20:54)
[2024-02-25 04:04] LABS: Anion Gap 12 mmol/L (10-20); BUN (Urea Nitrogen) 8 mg/dL (9.8-20.1); Calc. Creatinine Clearance 58 mL/min (70-130); Calcium 8.9 mg/dL (7.8-10.44); Carbon Dioxide 27 mmol/L (23-31); Chloride 107 mmol/L (98-107); Estimated GFR 63; Glucose 102 mg/dL (83-110); Potassium 3.2 mmol/L (3.5-5.1); Sodium 143 mmol/L (136-145)
[2024-02-25] MEDS: Potassium Chloride 20 MEQ TAB PO SCH (08:59)
[2024-02-25 11:32] VITALS: BP 123/79; TEMP 97.6
[2024-02-25] MEDS ORDERED: Azithromycin 250 MG TAB PO SCH (15:00)
[2024-02-26] MEDS ORDERED: FLU VACC QS2023(65UP)/MF59C/PF 60 MCG/0.5 ML SYRINGE IM ONE (09:00)
== END 2024-02-25 12:22 | disposition home or self-care (01) | DRG 291 ==
LOC: ERS 11:03 → ERHOLD 13:54 → 2NO 15:42
PROVIDERS: ADMIT Family Medicine; ATTEND Family Medicine
DX: I11.0 Hypertensive heart disease with heart failure (principal); I50.33 Acute on chronic diastolic (congestive) heart failure; I48.19 Other persistent atrial fibrillation; J44.1 Chronic obstructive pulmonary disease with (acute) exacerbation; I25.10 Atherosclerotic heart disease of native coronary artery without angina pectoris; E78.5 Hyperlipidemia, unspecified; Z88.8 Allergy status to other drugs, medicaments and biological substances; Z79.899 Other long term (current) drug therapy; Z79.82 Long term (current) use of aspirin; F41.9 Anxiety disorder, unspecified; F32.A Depression, unspecified; Z95.1 Presence of aortocoronary bypass graft; Z90.49 Acquired absence of other specified parts of digestive tract; I25.5 Ischemic cardiomyopathy; I25.2 Old myocardial infarction
CPT/HCPCS: 0241U; 36415; 71045; 80048; 80053; 83690; 83735; 83880; 84145; 84443; 84484; 85025; 85379; 85610; 85730; 93005; 93010; 96361; 96365; 96375; 96376; 97139; J0456; J0696; J1160; J1650; J1940; J3475; J3490; J7050

== ENCOUNTER 2024-04-04 10:52 | Inpatient (IN) | payer MEDICARE ==
[2024-04-04] MEDS ORDERED: Furosemide 40 MG (4 mL) VIAL ONE (12:03)
[2024-04-04 12:42] LABS: #Basophils 0.05 10x3/uL (0.0-0.2); %Basophils 0.7 % (0.0-1.0); %Eosinophils 3.7 % (0.0-10.0); %Lymphocytes 21.6 % (21.0-51.0); %Monocytes 7.8 % (0.0-10.0); %Neutrophils 65.9 % (42.0-75.0); Hematocrit 36.4 % (36.0-47.0); Hemoglobin 12.1 g/dL (12.0-16.0); Mean Corpuscular HGB CONC 33.2 g/dL (32.0-36.0); Mean Corpuscular Hemoglobin 30.3 pg (27.0-31.0); Mean Corpuscular Volume 91.2 fL (78.0-98.0); Mean Platelet Volume 11.9 fL (7.4-10.4); Platelet Count 127 10x3/uL (130-400); RBC Distribution Width 17.3 % (11.5-14.5); Red Blood Cell (RBC) Count 3.99 mill/uL (4.20-5.40)
[2024-04-04 12:57] LABS: Globulin 2.5 g/dL (2.4-3.5)
[2024-04-04 13:01] LABS: ALT (SGPT) 19 U/L (8-55); AST (SGOT) 15 U/L (5-34); Albumin 3.4 g/dL (3.4-4.8); Alkaline Phosphatase 88 U/L (40-110); Anion Gap 13 mmol/L (10-20); BUN (Urea Nitrogen) 6 mg/dL (9.8-20.1); Bilirubin, Total 1.3 mg/dL (0.2-1.2); Calc. Creatinine Clearance 0 mL/min (70-130); Calcium 9.2 mg/dL (7.8-10.44); Carbon Dioxide 23 mmol/L (23-31); Chloride 107 mmol/L (98-107); Estimated GFR 65; Glucose 101 mg/dL (83-110); Magnesium 1.8 mg/dL (1.6-2.6); Potassium 3.4 mmol/L (3.5-5.1); Protein, Total 5.9 g/dL (5.8-8.1); Sodium 140 mmol/L (136-145)
[2024-04-04 13:04] LABS: Troponin I 0.017 ng/mL (< 0.028)
[2024-04-04] MEDS ORDERED: dilTIAZem 25 MG/5 ML VIAL ONE (13:05)
[2024-04-04] MEDS ORDERED: methylPREDNISolone Sod Succ/PF 125 MG/2 ML VIAL ONE (13:05)
[2024-04-04] MEDS ORDERED: Potassium Chloride 20 MEQ TAB ONE (13:17)
[2024-04-04] MEDS ORDERED: Albuterol 2.5 MG (0.5 mL) NEB ONE (13:25)
[2024-04-04] MEDS ORDERED: Sodium Chloride For Inhalation 0.9% 3 ML NEB ONE (13:25)
[2024-04-04] MEDS ORDERED: Magnesium 2 GM/50 ML BAG (IN WATER) ONE (16:21)
[2024-04-04] MEDS ORDERED: Albuterol 200 PUFF (6.7GM INHALER) INH PRN (18:08)
[2024-04-04 18:10] LABS: Troponin I Less than 0.010 ng/mL (< 0.028)
[2024-04-04] MEDS ORDERED: Calcium Carbonate 500 MG ChewTAB PO PRN (18:11)
[2024-04-04] MEDS ORDERED: Ipratropium/Albuterol 3 ML NEB NEB PRN (18:13)
[2024-04-04] MEDS ORDERED: Communication Order-Pharmacy FS ONE (18:14)
[2024-04-04] MEDS: Acetaminophen 325 MG TAB PO PRN (20:27)
[2024-04-04 20:51] VITALS: BMI 21.9
[2024-04-04] MEDS: Atorvastatin Calcium 40 MG TAB PO SCH (20:53)
[2024-04-04] MEDS: DULoxetine 30 MG CAP PO SCH (20:53)
[2024-04-04] MEDS: traZODone HCl 50 MG TAB PO SCH (20:54)
[2024-04-04] MEDS: Oxybutynin 5 MG TAB PO SCH (20:54)
[2024-04-04] MEDS: Sacubitril 24MG/Valsartan 26 MG TAB PO SCH (20:54)
[2024-04-04] MEDS: Enoxaparin 60 MG (0.6 mL) SYRINGE SC SCH (21:11)
[2024-04-04 23:11] LABS: Troponin I Less than 0.010 ng/mL (< 0.028)
[2024-04-05 04:27] LABS: #Basophils Less than 0.03 10x3/uL (0.0-0.2); #Eosinphils Less than 0.03 10x3/uL (0.0-0.7); %Basophils 0.1 % (0.0-1.0); %Lymphocytes 11.7 % (21.0-51.0); %Monocytes 5.3 % (0.0-10.0); %Neutrophils 82.3 % (42.0-75.0); Hematocrit 37.1 % (36.0-47.0); Hemoglobin 12.6 g/dL (12.0-16.0); Mean Corpuscular Hemoglobin 30.1 pg (27.0-31.0); Mean Corpuscular Volume 88.5 fL (78.0-98.0); Mean Platelet Volume 11.9 fL (7.4-10.4); Platelet Count 131 10x3/uL (130-400); RBC Distribution Width 17.1 % (11.5-14.5); Red Blood Cell (RBC) Count 4.19 mill/uL (4.20-5.40)
[2024-04-05 05:05] LABS: Globulin 2.4 g/dL (2.4-3.5)
[2024-04-05 05:10] LABS: ALT (SGPT) 15 U/L (8-55); AST (SGOT) 13 U/L (5-34); Albumin 3.1 g/dL (3.4-4.8); Alkaline Phosphatase 83 U/L (40-110); Anion Gap 15 mmol/L (10-20); BUN (Urea Nitrogen) 10 mg/dL (9.8-20.1); Bilirubin, Total 1.4 mg/dL (0.2-1.2); Calc. Creatinine Clearance 54 mL/min (70-130); Calcium 8.9 mg/dL (7.8-10.44); Carbon Dioxide 22 mmol/L (23-31); Chloride 105 mmol/L (98-107); Estimated GFR 70; Glucose 125 mg/dL (83-110); Potassium 3.5 mmol/L (3.5-5.1); Protein, Total 5.5 g/dL (5.8-8.1); Sodium 138 mmol/L (136-145)
[2024-04-05] MEDS: Furosemide 40 MG (4 mL) VIAL SLOW IVP SCH (06:10)
[2024-04-05] MEDS: Mometasone 200 MCG/Formoterol 5 MCG 120 PUFF INHALER INH SCH (08:17)
[2024-04-05] MEDS: Isosorbide Mononitrate 30 MG ER.TAB PO SCH (09:32)
[2024-04-05] MEDS: Aspirin 81 mg Enteric Coated Tablet PO SCH (09:32)
[2024-04-05] MEDS: Potassium Chloride 20 MEQ TAB PO SCH ×2 (09:32→20:47)
[2024-04-05 20:08] LABS: Potassium 3.3 mmol/L (3.5-5.1)
[2024-04-05] MEDS: Apixaban 5 MG TAB PO SCH (20:48)
[2024-04-05] MEDS: Digoxin 0.5 MG/2 ML AMP SLOW IVP SCH (21:40)
[2024-04-06 03:33] LABS: #Basophils 0.05 10x3/uL (0.0-0.2); %Basophils 0.4 % (0.0-1.0); %Eosinophils 1.4 % (0.0-10.0); %Lymphocytes 26.1 % (21.0-51.0); %Monocytes 7.4 % (0.0-10.0); %Neutrophils 64.3 % (42.0-75.0); Hematocrit 38.8 % (36.0-47.0); Hemoglobin 13.4 g/dL (12.0-16.0); Mean Corpuscular HGB CONC 34.5 g/dL (32.0-36.0); Mean Corpuscular Hemoglobin 30.8 pg (27.0-31.0); Mean Corpuscular Volume 89.2 fL (78.0-98.0); Mean Platelet Volume 11.4 fL (7.4-10.4); Platelet Count 147 10x3/uL (130-400); RBC Distribution Width 17.1 % (11.5-14.5); Red Blood Cell (RBC) Count 4.35 mill/uL (4.20-5.40)
[2024-04-06 04:05] LABS: Magnesium 1.8 mg/dL (1.6-2.6)
[2024-04-06 04:21] LABS: Anion Gap 15 mmol/L (10-20); BUN (Urea Nitrogen) 15 mg/dL (9.8-20.1); Calc. Creatinine Clearance 49 mL/min (70-130); Carbon Dioxide 28 mmol/L (23-31); Chloride 104 mmol/L (98-107); Estimated GFR 64; Glucose 96 mg/dL (83-110); Potassium 3.3 mmol/L (3.5-5.1); Sodium 144 mmol/L (136-145)
[2024-04-06] MEDS: Potassium Chloride 20 MEQ in Premix 1 BAG IVPB SCH (06:09)
[2024-04-06] MEDS: Digoxin 0.5 MG/2 ML AMP SLOW IVP SCH (17:30)
[2024-04-06] MEDS: dilTIAZem 30 MG TAB PO SCH (18:18)
[2024-04-06] MEDS: Senokot S 8.6-50 MG TAB PO PRN (20:42)
[2024-04-07 04:55] LABS: Anion Gap 15 mmol/L (10-20); BUN (Urea Nitrogen) 13 mg/dL (9.8-20.1); Calc. Creatinine Clearance 47 mL/min (70-130); Calcium 9.1 mg/dL (7.8-10.44); Carbon Dioxide 28 mmol/L (23-31); Chloride 100 mmol/L (98-107); Estimated GFR 61; Glucose 91 mg/dL (83-110); Potassium 3.2 mmol/L (3.5-5.1); Sodium 140 mmol/L (136-145)
[2024-04-07] MEDS ORDERED: Electrolyte Replacement Protocol 1 EACH FS SCH (05:15)
[2024-04-07] MEDS: Potassium Chloride 20 MEQ TAB PO SCH ×2 (05:42→13:01)
[2024-04-07 06:18] LABS: Magnesium 1.8 mg/dL (1.6-2.6)
[2024-04-07] MEDS: Magnesium 2 GM/50 ML(in water) 2 GM in Premix 1 BAG IVPB SCH (08:54)
[2024-04-07 10:21] LABS: Potassium 3.4 mmol/L (3.5-5.1)
[2024-04-07] MEDS: Furosemide 40 MG TAB PO SCH (15:38)
[2024-04-08 04:41] LABS: Anion Gap 15 mmol/L (10-20); BUN (Urea Nitrogen) 15 mg/dL (9.8-20.1); Calc. Creatinine Clearance 43 mL/min (70-130); Calcium 8.9 mg/dL (7.8-10.44); Carbon Dioxide 27 mmol/L (23-31); Chloride 103 mmol/L (98-107); Estimated GFR 58; Glucose 106 mg/dL (83-110); Potassium 3.6 mmol/L (3.5-5.1); Sodium 141 mmol/L (136-145)
[2024-04-08 15:33] VITALS: BP 122/79; TEMP 97.8
[2024-04-08] MEDS ORDERED: dilTIAZem CD 120 MG CAP PO SCH (21:00)
[2024-04-09] MEDS ORDERED: Furosemide 40 MG TAB PO SCH (07:30)
== END 2024-04-08 05:05 | disposition home or self-care (01) | DRG 291 ==
LOC: ERS 10:52 → 2NO 16:20 → OBSVTOIN 04-05 08:48
PROVIDERS: ADMIT Internal Medicine; ATTEND Internal Medicine
DX: I11.0 Hypertensive heart disease with heart failure (principal); I50.23 Acute on chronic systolic (congestive) heart failure; J44.9 Chronic obstructive pulmonary disease, unspecified; I25.10 Atherosclerotic heart disease of native coronary artery without angina pectoris; E78.5 Hyperlipidemia, unspecified; K21.9 Gastro-esophageal reflux disease without esophagitis; F41.9 Anxiety disorder, unspecified; I25.5 Ischemic cardiomyopathy; F17.210 Nicotine dependence, cigarettes, uncomplicated; I48.91 Unspecified atrial fibrillation; E87.6 Hypokalemia; E78.2 Mixed hyperlipidemia; Z90.49 Acquired absence of other specified parts of digestive tract; Z95.1 Presence of aortocoronary bypass graft; Z82.49 Family history of ischemic heart disease and other diseases of the circulatory system; Z79.899 Other long term (current) drug therapy; Z88.8 Allergy status to other drugs, medicaments and biological substances; Z79.51 Long term (current) use of inhaled steroids; Z98.51 Tubal ligation status
CPT/HCPCS: 36415; 71045; 80048; 80053; 83735; 83880; 84443; 84484; 85025; 93005; 93798; 94640; 96365; 96372; 96375; 96376; G0378; J1160; J1650; J1940; J2930; J3475; J3480; J7611

== ENCOUNTER 2024-09-04 09:01 | Outpatient (CLI) | payer MEDICARE, MEDICAID ==
[2024-09-04 10:11] LABS: Hematocrit 42.3 % (36.0-47.0); Hemoglobin 13.7 g/dL (12.0-16.0); Mean Corpuscular HGB CONC 32.4 g/dL (32.0-36.0); Mean Corpuscular Hemoglobin 30.9 pg (27.0-31.0); Mean Corpuscular Volume 95.3 fL (78.0-98.0); Mean Platelet Volume 11.2 fL (7.4-10.4); Platelet Count 155 10x3/uL (130-400); RBC Distribution Width 14.3 % (11.5-14.5); Red Blood Cell (RBC) Count 4.44 mill/uL (4.20-5.40)
[2024-09-04 10:25] LABS: INR-International Normal Ratio 1.2; PTT 35.2 sec (22.9-36.1); Prothrombin Time 14.9 sec (12.0-14.7)
[2024-09-04 10:40] LABS: Anion Gap 13 mmol/L (10-20); BUN (Urea Nitrogen) 8 mg/dL (9.8-20.1); Calc. Creatinine Clearance 0 mL/min (70-130); Calcium 9.2 mg/dL (7.8-10.44); Carbon Dioxide 31 mmol/L (23-31); Chloride 104 mmol/L (98-107); Estimated GFR 51; Glucose 92 mg/dL (83-110); Potassium 3.8 mmol/L (3.5-5.1); Sodium 144 mmol/L (136-145)
== END 2024-09-04 09:02 | disposition home or self-care (01) ==
LOC: LABBT 09:01
PROVIDERS: ATTEND Internal Medicine Cardiovascular Disease
DX: Z01.812 Encounter for preprocedural laboratory examination (principal); I50.22 Chronic systolic (congestive) heart failure; I25.5 Ischemic cardiomyopathy; I48.19 Other persistent atrial fibrillation
CPT/HCPCS: 80048; 85027; 85610; 85730

== ENCOUNTER 2024-09-06 07:39 | Day surgery (SDC) | payer MEDICARE, MEDICAID ==
[2024-09-04 09:16] VITALS: BMI 23.2
[2024-09-06] MEDS ORDERED: Gentamicin 80 MG/2 ML VIAL ONE (08:40)
[2024-09-06] MEDS ORDERED: CEFAZOLIN 2 GM VIAL ONE (08:40)
[2024-09-06] MEDS ORDERED: Iopamidol 370 76% 100 ML VIAL ONE (09:05)
[2024-09-06] MEDS ORDERED: Ipratropium/Albuterol 3 ML NEB ONE (09:36)
[2024-09-06] MEDS ORDERED: Ondansetron PF 4 MG/2 ML Vial ONE (10:21)
[2024-09-06] MEDS ORDERED: Phenylephrine 10 MG/ML VIAL ONE (10:23)
[2024-09-06] MEDS ORDERED: PROPOFOL 200 MG/20 ML VIAL ONE (10:47)
[2024-09-06] MEDS ORDERED: Lidocaine 1% PF 5 ML VIAL ONE (10:47)
[2024-09-06] MEDS ORDERED: Dexamethasone 20 MG/5 ML VIAL ONE (10:47)
[2024-09-06] MEDS ORDERED: fentaNYL 50 mcg/mL 1 mL Vial ONE ×2 (11:13→13:41)
[2024-09-06] MEDS ORDERED: HYDROcodone/Acetaminophen 5/325 mg Tablet ONE (16:03)
[2024-09-06] MEDS ORDERED: Lidocaine 1% w/Epinephrine 1:100K 20 ML VIAL ONE (16:45)
== END 2024-09-06 17:10 | disposition home or self-care (01) ==
LOC: SDC 07:39
PROVIDERS: ATTEND Internal Medicine Cardiovascular Disease
PROC: 0JH608Z Insertion of Defibrillator Generator into Chest Subcutaneous Tissue and Fascia, Open Approach (ICD-10-PCS; principal; 2024-09-06)
PROC: 02H63KZ Insertion of Defibrillator Lead into Right Atrium, Percutaneous Approach (ICD-10-PCS; 2024-09-06)
PROC: 02HK3KZ Insertion of Defibrillator Lead into Right Ventricle, Percutaneous Approach (ICD-10-PCS; 2024-09-06)
PROC: 4A027FZ Measurement of Cardiac Rhythm, Via Natural or Artificial Opening (ICD-10-PCS; 2024-09-06)
PROC: 4A0274Z Measurement of Cardiac Electrical Activity, Via Natural or Artificial Opening (ICD-10-PCS; 2024-09-06)
DX: I11.0 Hypertensive heart disease with heart failure (principal); I50.22 Chronic systolic (congestive) heart failure; I25.5 Ischemic cardiomyopathy; Z95.1 Presence of aortocoronary bypass graft; I48.19 Other persistent atrial fibrillation; J44.9 Chronic obstructive pulmonary disease, unspecified
CPT/HCPCS: 33225; 33249; 71045; 93005; C1769; C1777; C1882; C1898; C1900; J1100; J1580; J2371; J2405; J2704; J3010; 93010; J7620; Q9967